=== PATIENT | male | born 1965 | race Caucasian/White ===

== ENCOUNTER 2020-11-02 23:43 | Inpatient (IN) | payer MEDICAID ==
[~2020-11-02] VITALS: Ht 185.4 cm; Wt 135.0 kg
[2020-11-03] VITALS (20 sets, daily range): BP systolic 79–124; BP diastolic 21–84
[2020-11-03] MEDS: FENTANYL-0.9 % NACL/PF 100 ML IV PRN ×3 (00:03→13:30)
[2020-11-03] MEDS: midazolam 100mg in NS 100ml 100 ML IV PRN ×2 (00:04→11:30)
--- NOTE | 2020-11-03 00:07 | NUR ---
Pt came from [facility] already intubated at 27cm at the lip and OG tube placed as well as smalls wit coude in place. Pt arrived on NS only, order from Dr. Quezada put in order for Versed and Fentanyl stat, 18g iv to right external jugular placed. RT at bedside, pt attached to vent with 100% fio2. Refer to [facility] paperwork for medications prior to transfer as well as labs prior to transfer
[2020-11-03 00:22] LABS: ABG BASE EXCESS -1.4 mmol/L (-2.0-2.0); ABG HCO3 27.2 mmol/L (22.0-26.0); ABG OXYGEN SATURATION 96.5 % (94-97); ABG PO2 (T) 88.8 mmHg (75.0-100.0); ALLEN'S TEST POSITIVE; FCOHb 1.6 % (0.0-3.9); FMetHb 0.1 % (0.0-1.5); FO2Hb 94.9 % (94-97); PATIENT TEMPERATURE 35.7; PEEP 5 cm H2O; RESPIRATORY RATE 18 b/min; TIDAL VOLUME 500 mL; TOTAL HEMOGLOBIN 15.8 G/dl (14.0-18.0)
[2020-11-03] MEDS: K, MAG and/or Phos replacement - Verify level? MC SCH ×2 (01:50→07:17)
[2020-11-03] MEDS ORDERED: ipratropium/albuterol 3ml nebule NEB PRN (01:50)
[2020-11-03] MEDS ORDERED: insulin Lispro (HumaLOG) vial - multi-dose SQ SCH (01:50)
[2020-11-03] MEDS ORDERED: ipratropium/albuterol 3ml nebule IH PRN (01:50)
[2020-11-03] MEDS ORDERED: MESSAGE TO PHARMACY PO ONE (01:50)
[2020-11-03] MEDS ORDERED: ondansetron/PF 4mg/2ml inj IV PRN (01:50)
[2020-11-03] MEDS ORDERED: dextrose ORAL solution 15 GM/59 ML bottle PO PRN ×2 (01:50)
[2020-11-03] MEDS ORDERED: magnesium 4gm in 100ml NS 100 ML IV PRN (01:50)
[2020-11-03] MEDS ORDERED: potassium Cl 20 mEq SR tablet PO PRN ×2 (01:50)
[2020-11-03] MEDS ORDERED: magnesium Cl slow-release 64mg tablet PO PRN (01:50)
[2020-11-03] MEDS ORDERED: glucagon, human recombinant 1mg kit SUBCUT PRN (01:50)
[2020-11-03] MEDS ORDERED: magnesium 2GM in 50ml NS 50 ML IV PRN (01:50)
[2020-11-03] MEDS ORDERED: acetaminophen 325mg tablet PO PRN ×2 (01:50)
[2020-11-03] MEDS ORDERED: IPRA3AMP31 IH (01:59)
[2020-11-03] MEDS ORDERED: NICO-687 TOP (01:59)
[2020-11-03] MEDS ORDERED: AMLO2.5T2 PO (01:59)
[2020-11-03] MEDS ORDERED: SYN0.088T PO (01:59)
[2020-11-03] MEDS ORDERED: APIX5TAB3 PO (01:59)
[2020-11-03] MEDS ORDERED: INSU100C10 SQ (01:59)
[2020-11-03] MEDS ORDERED: NITR1PAT68 TD (01:59)
[2020-11-03 02:23] LABS: BASOPHILS % (AUTO) 0.2 % (0-1); EOSINOPHILS % (AUTO) 0 % (0-6); HEMATOCRIT 43.8 % (42.0-52.0); HEMOGLOBIN 14.1 g/dl (14.0-17.9); LYMPHOCYTES # (AUTO) 0.3 X10'3 (1.1-4.8); LYMPHOCYTES % (AUTO) 1.6 % (21-51); MEAN CORPUSCULAR HGB CONC 32.3 g/dL (33.0-36.5); MEAN PLATELET VOLUME 7.9 FL (7.4-10.4); MONOCYTES # (AUTO) 1.7 X10'3 (0-0.9); MONOCYTES % (AUTO) 8.9 % (2-12); NEUTROPHILS # (AUTO) 16.8 X10'3 (1.8-7.7); NEUTROPHILS % (AUTO) 89.3 % (42-75); PLATELET COUNT 320 X10'3 (140-440); RED BLOOD COUNT 4.71 X10'6 (4.70-6.10); RED CELL DISTRIBUTION WIDTH 14.2 % (11.5-14.5); WHITE BLOOD COUNT 18.8 X10'3 (4.5-11.0)
[2020-11-03 02:33] LABS: ALANINE AMINOTRANSFERASE 30 U/L (12-78); ALBUMIN 2.3 G/DL (3.4-5.0); ALBUMIN/GLOBULIN RATIO 0.5 (1.1-1.5); ALKALINE PHOSPHATASE 132 IU/L (46-116); ANION GAP 7 (8-16); ASPARTATE AMINO TRANSFERASE 30 U/L (10-37); BILIRUBIN,TOTAL 0.8 MG/DL (0.1-1.0); CHLORIDE 99 MMOL/L (99-107); SODIUM 135 MMOL/L (135-145); TOTAL CARBON DIOXIDE 28.8 MMOL/L (24-32)
[2020-11-03 02:42] LABS: BLOOD UREA NITROGEN 28 MG/DL (7-18); BUN/CREATININE RATIO 21.9 (5.4-32.0); CALCIUM 8.9 MG/DL (8.5-10.1); CREATININE 1.28 MG/DL (0.60-1.10); GLUCOSE 115 MG/DL (70-104); eGFR 58 ML/MIN
[2020-11-03 02:44] LABS: POTASSIUM 6.1 MMOL/L (3.5-5.1)
--- NOTE | 2020-11-03 02:52 | NUR ---
K 6.1, PRIMARY RN, ERICA MONTEROIED.
[2020-11-03] MEDS ORDERED: vancomycin/NS 1 GM ADD-VANTAGE 250 ML IV SCH (03:00)
--- NOTE | 2020-11-03 03:04 | NUR ---
Person to contact - Sven Alaniz [phone]
[2020-11-03] MEDS ORDERED: SODIUM ZIRCONIUM CYCLOSILICATE 10 GM POWD.PACK NG STA (03:12)
[2020-11-03 03:13] LABS: HEMOGLOBIN A1C 10.5 % (4.5-6.2)
[2020-11-03] MEDS ORDERED: sodium polystyrene sulfonate 15gm/60ml oral suspension PO ONE ×2 (03:25→03:40)
[2020-11-03 03:43] LABS: AMYLASE 28 U/L (25-115); CREATINE KINASE 113 U/L (39-308); LIPASE 65 U/L (73-393); VANCOMYCIN,TROUGH 8.9 UG/ML (6.0-14.0)
[2020-11-03] MEDS ORDERED: dextrose 50%-water 50ml dispensing syringe IV ONE (04:30)
[2020-11-03] MEDS ORDERED: sodium bicarbonate (8.4%) 1 mEq/ml syringe IV ONE (04:30)
[2020-11-03] MEDS ORDERED: albuterol 2.5 MG/3 ML nebule NEB ONE (04:30)
[2020-11-03 04:45] LABS: ABG BASE EXCESS -0.3 mmol/L (-2.0-2.0); ABG HCO3 24.8 mmol/L (22.0-26.0); ABG OXYGEN SATURATION 99.4 % (94-97); ABG PCO2 (T) 40.9 mmHg (35.0-48.0); ABG PO2 (T) 190.3 mmHg (75.0-100.0); ALLEN'S TEST POSITIVE; FCOHb 0.6 % (0.0-3.9); FMetHb 0.3 % (0.0-1.5); FO2Hb 98.5 % (94-97); PATIENT TEMPERATURE 36.2; PEEP 8 cm H2O; RESPIRATORY RATE 24 b/min; TIDAL VOLUME 500 mL; TOTAL HEMOGLOBIN 15.5 G/dl (14.0-18.0)
--- NOTE | 2020-11-03 04:48 | NUR ---
Patient arrived to unit at approximately 0340 with ED RN. Patient currently on Fentanyl at 45 mcg/hr and Versed at 5 mg/hr. Patient has an 18g to his right IJ and an 18g to his right AC. Both bilateral lower extremities are wrapped in compression sol wraps with kerlex and xerofoam for circumferential wounds, compartments are soft. Wounds are draining and cultures sent for each extremity. Patient appears to have a fungal infection to the left anterior tib/fib area. Some areas of the wound appear to be necrotic. Patient also has excoriation noted to the scrotum and left medial groin area. Patient has edema to bilateral lower extremities and reddness extending on the right leg to mid thigh and left leg just below the knee. Patient has redness noted to bilateral flank areas. Patient bilateral hands are cyanotic, pulses weak, capillary refill prolonged. Patient has wounds on right hand x 3 that appear to be old and scabbed. Wounds appear to be puncture wounds. Pictures taken of each wound and placed in the chart. patient does not open his eyes, no gag, + cough. patient minimally moves bilateral upper arms and when the arms are moved it appears to be gross motor. Patient moves lower extremities but not to command. Patient has weak pulses, edema pitting and noted in bilateral lower extremities. patient has an OG to low intermittent suction, a smalls placed at outside facility (u/a and culture sent upon arrival), and ET tube (7.5, 26 at teeth). Patient has an 18g in right IJ and an 18g in right AC. Patient fentanyl increased to 150 mcg/hr during wound care. Blood culture sent, u/a and u/c sent. Vanco trough and lactic acid sent. Dr. Avalos notified and showed wounds as well as patient assessment. Orders placed.
[2020-11-03 05:00] LABS: CLARITY,URINE CLEAR (Clear); COLOR,URINE YELLOW (Yellow); GLUCOSE, URINE NEGATIVE (Neg); KETONES,URINE NEGATIVE (Neg); LEUKOCYTE ESTERASE ,URINE TRACE (Neg); NITRITES, URINE NEGATIVE (Neg); OCCULT BLOOD,URINE TRACE-INTACT (Neg); PROTEIN,URINE NEGATIVE (Neg)
[2020-11-03 05:02] LABS: UA COLLECTION TYPE NON-SPECIFIED
[2020-11-03 05:06] LABS: BACTERIA,URINE 2+ /HPF (Neg); HYALINE CASTS 0-3 /LPF (NEGATIVE); RBC,URINE 0-2 /HPF (0-2); SQUAMOUS EPITHELIAL CELL,UR MODERATE /LPF (FEW)
[2020-11-03] MEDS ORDERED: insulin Lispro (HumaLOG) vial - multi-dose SQ ONE (06:10)
--- NOTE | 2020-11-03 06:50 | NUR ---
Patient in room ICU 2045. I have received report from Lesly MATA and had the opportunity to ask questions and assume patient care.
[2020-11-03] MEDS: enoxaparin 40mg/0.4ml syringe SUBCUT SCH (07:20)
[2020-11-03] MEDS: pantoprazole 40 MG vial IV SCH (07:20)
[2020-11-03] MEDS: piperacillin/tazo 3.375gm/50ml 50 ML IV SCH ×2 (07:35→15:18)
[2020-11-03] MEDS ORDERED: levoTHYROXINE sod inj. 100mcg/5 ml vial IV SCH (08:00)
[2020-11-03] MEDS ORDERED: docusate sod 100mg capsule PO SCH (08:00)
[2020-11-03] MEDS ORDERED: VANCOmycin 1250MG/NS 250ml Bag 250 ML IV SCH (09:00)
--- NOTE | 2020-11-03 10:09 | NUR ---
PICC LINE INFORMATION: REF: [id number] LOT: [id number] EXP: 09/17/2021 Addendum: 11/03/20 at 1013 by Keyanna Jackson RN ORIGINALLY UNABLE TO GAIN CONSENT FROM FAMILY, SONAL JONES CALLED BACK AND APPROVED PICC LINE PLACEMENT
[2020-11-03 10:43] LABS: POTASSIUM 4.5 MMOL/L (3.5-5.1)
[2020-11-03] MEDS ORDERED: multi-vitamin w/minerals & ferrous gluconate 9 MG/15 ML oral LIQUID NG SCH (10:57)
[2020-11-03] MEDS ORDERED: acetaminophen 325mg/10.15ml oral unit dose solution NG PRN ×2 (10:59)
[2020-11-03] MEDS ORDERED: dextrose ORAL solution 15 GM/59 ML bottle NG PRN ×2 (11:00)
[2020-11-03] MEDS ORDERED: potassium Cl 20 mEq SR tablet NG PRN ×2 (11:01)
[2020-11-03 11:07] LABS: ALBUMIN 1.9 G/DL (3.4-5.0); ANION GAP 6 (8-16); BLOOD UREA NITROGEN 27 MG/DL (7-18); BUN/CREATININE RATIO 25.2 (5.4-32.0); CALCIUM 8.9 MG/DL (8.5-10.1); CHLORIDE 102 MMOL/L (99-107); CREATININE 1.07 MG/DL (0.60-1.10); GLUCOSE 71 MG/DL (70-104); SODIUM 139 MMOL/L (135-145); TOTAL CARBON DIOXIDE 31.3 MMOL/L (24-32); eGFR 72 ML/MIN
[2020-11-03] MEDS ORDERED: normal saline 1000ml 1,000 ML IV SCH (11:25)
--- NOTE | 2020-11-03 11:27 | NUR ---
ADRIANNA/Pablo Consults: Pt intubated admit DX acute hypoxemic respiratory failure, sepsis, CHF, chronic LLE swelling w/ LE cellulitis, heavy etoh abuse, and meth abuse hx. Hx T2DM A1C 10.5 as well; would benefit from DM ed once appropriate this admit. Pablo 12 w/ extensive BLE wounds and scrotal excoriation noted in pictures in chart. Pending WOC note at this time. MAP 67 this AM. TF recs below in case prolonged intubation. Receiving routine colace for bowel care pending BM this admit. Will continue to monitor. Rec: 1. IF TF; Vital High Protein at 95ml/hr 2. IF TF; water flush 100ml Q4 3. IF TF; PALB Q /; daily wts 4. routine bowel care Addendum: 11/03/20 at [address] Amended: Links added.
[2020-11-03] MEDS ORDERED: dexmedetomidine/D5W 100mL 100 ML IV ONE (12:05)
[2020-11-03] MEDS: thiamine 100mg tablet NG SCH (12:09)
[2020-11-03] MEDS: VANCOmycin 1250MG/NS 250ml Bag 250 ML IV SCH (12:09)
[2020-11-03] MEDS: folic acid 1mg tablet NG SCH (12:09)
[2020-11-03] MEDS ORDERED: ipratropium/albuterol 3ml nebule IH SCH (13:00)
[2020-11-03 14:45] LABS: ALBUMIN 1.6 G/DL (3.4-5.0); ANION GAP 5 (8-16); BLOOD UREA NITROGEN 24 MG/DL (7-18); BUN/CREATININE RATIO 22.4 (5.4-32.0); CALCIUM 7.8 MG/DL (8.5-10.1); CHLORIDE 101 MMOL/L (99-107); CREATININE 1.07 MG/DL (0.60-1.10); GLUCOSE 155 MG/DL (70-104); POTASSIUM 3.7 MMOL/L (3.5-5.1); SODIUM 135 MMOL/L (135-145); TOTAL CARBON DIOXIDE 28.6 MMOL/L (24-32); eGFR 72 ML/MIN
[2020-11-03 15:04] LABS: BASOPHILS % (AUTO) 0.4 % (0-1); EOSINOPHILS # (AUTO) 0.1 X10'3 (0-0.9); EOSINOPHILS % (AUTO) 0.7 % (0-6); HEMATOCRIT 39.3 % (42.0-52.0); HEMOGLOBIN 12.6 g/dl (14.0-17.9); LYMPHOCYTES # (AUTO) 0.7 X10'3 (1.1-4.8); LYMPHOCYTES % (AUTO) 7.9 % (21-51); MEAN CORPUSCULAR HEMOGLOBIN 29.6 PG (27.0-31.0); MEAN CORPUSCULAR VOLUME 92.4 FL (78-98); MONOCYTES # (AUTO) 0.8 X10'3 (0-0.9); MONOCYTES % (AUTO) 9.2 % (2-12); NEUTROPHILS # (AUTO) 7.3 X10'3 (1.8-7.7); NEUTROPHILS % (AUTO) 81.8 % (42-75); PLATELET COUNT 260 X10'3 (140-440); RED BLOOD COUNT 4.25 X10'6 (4.70-6.10); RED CELL DISTRIBUTION WIDTH 14.4 % (11.5-14.5); WHITE BLOOD COUNT 8.9 X10'3 (4.5-11.0)
[2020-11-03 15:23] LABS: TROPONIN I < 0.04 NG/ML (0.0-0.05)
[2020-11-03] MEDS: ipratropium/albuterol 3ml nebule IH SCH ×2 (15:44→19:04)
--- NOTE | 2020-11-03 16:42 | NUR ---
1415 Pt's BP dropped to 70s systolic. Dr. Dawn called and stated to hold versed and fentanyl, trop lab, and 12 lead EKG. Informed MD of EKG results of A-flutter R BBB, trop neg. 1640 called again regarding pt's BP sustaining 80s systolic. MD ordered to hold precedex and give 500 bolus. stated she would be in to see the patient.
[2020-11-03] MEDS ORDERED: diltiazem-D5W 125mg/125ml 100 ML IV SCH (17:45)
--- NOTE | 2020-11-03 17:45 | NUR ---
Dr. Dawn aware of pt is A-flutter, HR increased to 110s, to 120s. MD ordered Cardizem drip for pt. MD placed called to online marketing strategist underliner Dr. Shukla for consult.
--- NOTE | 2020-11-03 18:21 | NUR ---
Problems reprioritized. Patient report given, questions answered & plan of care reviewed with Mac RN.
[2020-11-03 18:30] LABS: MAGNESIUM 1.7 MG/DL (1.5-2.4); PHOSPHORUS 3.6 MG/DL (2.3-4.5)
[2020-11-03] MEDS: diltiazem-NS 100mg/100ml 100 ML IV SCH (19:22)
[2020-11-03] MEDS: docusate sodium 100mg/10ml UD cup NG SCH (19:23)
[2020-11-03] MEDS: lactobacillus rhamnosus 10,000 MMU CELLS/CAPSULE NG SCH (19:23)
[2020-11-03] MEDS: dextrose 50%-water 50ml dispensing syringe IV PRN (19:59)
[2020-11-03] MEDS: insulin glargine (Lantus) pen - multi-dose SQ SCH (20:08)
[2020-11-03] MEDS: sennosides/docusate sodium tablet NG SCH (20:42)
[2020-11-03] MEDS ORDERED: sodium chloride inj. 154 MEQ in Dextrose 10%-water IV solution 961.5 ML IV ONE (21:50)
[2020-11-03] MEDS: Dextrose 10%-water IV solution 1,000 ML IV SCH (22:21)
[2020-11-04] VITALS (24 sets, daily range): BP systolic 93–111; BP diastolic 57–73
[2020-11-04] MEDS: VANCOmycin 1250MG/NS 250ml Bag 250 ML IV SCH ×3 (00:27→23:37)
[2020-11-04] MEDS: piperacillin/tazo 3.375gm/50ml 50 ML IV SCH ×4 (00:27→23:38)
--- NOTE | 2020-11-04 01:00 | NUR ---
RN Note -changed dressings on bilateral lower extremities.
[2020-11-04 02:49] LABS: BASOPHILS % (AUTO) 0.3 % (0-1); EOSINOPHILS # (AUTO) 0.1 X10'3 (0-0.9); EOSINOPHILS % (AUTO) 0.5 % (0-6); HEMATOCRIT 44.7 % (42.0-52.0); HEMOGLOBIN 14.3 g/dl (14.0-17.9); LYMPHOCYTES # (AUTO) 0.5 X10'3 (1.1-4.8); LYMPHOCYTES % (AUTO) 4.6 % (21-51); MEAN CORPUSCULAR HEMOGLOBIN 29.7 PG (27.0-31.0); MEAN CORPUSCULAR HGB CONC 32.1 g/dL (33.0-36.5); MEAN CORPUSCULAR VOLUME 92.5 FL (78-98); MEAN PLATELET VOLUME 7.8 FL (7.4-10.4); MONOCYTES % (AUTO) 9.6 % (2-12); NEUTROPHILS # (AUTO) 8.7 X10'3 (1.8-7.7); PLATELET COUNT 296 X10'3 (140-440); RED BLOOD COUNT 4.83 X10'6 (4.70-6.10); RED CELL DISTRIBUTION WIDTH 14.3 % (11.5-14.5); WHITE BLOOD COUNT 10.2 X10'3 (4.5-11.0)
[2020-11-04 02:54] LABS: PARTIAL THROMBOPLASTIN TIME 33 SECONDS (22-32)
[2020-11-04 02:56] LABS: ALANINE AMINOTRANSFERASE 19 U/L (12-78); ALBUMIN 1.7 G/DL (3.4-5.0); ALBUMIN/GLOBULIN RATIO 0.4 (1.1-1.5); ALKALINE PHOSPHATASE 102 IU/L (46-116); ANION GAP 7 (8-16); ASPARTATE AMINO TRANSFERASE 18 U/L (10-37); BILIRUBIN,TOTAL 1.1 MG/DL (0.1-1.0); BLOOD UREA NITROGEN 25 MG/DL (7-18); BUN/CREATININE RATIO 23.1 (5.4-32.0); CALCIUM 8.5 MG/DL (8.5-10.1); CHLORIDE 103 MMOL/L (99-107); CREATININE 1.08 MG/DL (0.60-1.10); GLUCOSE 99 MG/DL (70-104); MAGNESIUM 1.9 MG/DL (1.5-2.4); PHOSPHORUS 3.8 MG/DL (2.3-4.5); POTASSIUM 4.3 MMOL/L (3.5-5.1); SODIUM 139 MMOL/L (135-145); TOTAL CARBON DIOXIDE 29.5 MMOL/L (24-32); TOTAL PROTEIN 5.8 G/DL (6.4-8.2); eGFR 71 ML/MIN
[2020-11-04 03:41] LABS: ABG BASE EXCESS 3.8 mmol/L (-2.0-2.0); ABG HCO3 27.3 mmol/L (22.0-26.0); ABG OXYGEN SATURATION 94.3 % (94-97); ABG PO2 (T) 66.4 mmHg (75.0-100.0); ALLEN'S TEST POSITIVE; FMetHb 0.1 % (0.0-1.5); FO2Hb 93.3 % (94-97); PATIENT TEMPERATURE 36.7; PEEP 8 cm H2O; RESPIRATORY RATE 24 b/min; TIDAL VOLUME 500 mL; TOTAL HEMOGLOBIN 15.5 G/dl (14.0-18.0)
[2020-11-04] MEDS: ipratropium/albuterol 3ml nebule IH SCH ×3 (06:54→15:03)
[2020-11-04] MEDS: enoxaparin 40mg/0.4ml syringe SUBCUT SCH (07:16)
[2020-11-04] MEDS: thiamine 100mg tablet NG SCH (07:17)
[2020-11-04] MEDS: pantoprazole 40 MG vial IV SCH (07:17)
[2020-11-04] MEDS: lactobacillus rhamnosus 10,000 MMU CELLS/CAPSULE NG SCH ×2 (07:17→19:42)
[2020-11-04] MEDS: folic acid 1mg tablet NG SCH (07:18)
[2020-11-04] MEDS: MULTIVIT-MIN/FERROUS GLUCONATE 9 MG/15 ML LIQUID NG SCH (07:18)
[2020-11-04] MEDS: levoTHYROXINE 88mcg tablet NG SCH (07:18)
[2020-11-04] MEDS: docusate sodium 100mg/10ml UD cup NG SCH ×2 (07:18→19:41)
[2020-11-04] MEDS: nicotine 21mg patch - 24 hr TD SCH (07:19)
[2020-11-04] MEDS ORDERED: nitroGLYCERIN 0.4mg/hour patch TD SCH (08:00)
[2020-11-04] MEDS ORDERED: levoTHYROXINE 88mcg tablet PO SCH (08:00)
[2020-11-04] MEDS: K, MAG and/or Phos replacement - Verify level? MC SCH (08:39)
--- NOTE | 2020-11-04 11:14 | NUR ---
TF Consult: Pt to start OGTF today per weapons designer to start at 20ml/hr; EN recs below. Per WOC note no open wounds at this time w/ cellulitis present. No BM yet though recent admit receiving routine colace and senna. Will monitor for TF tolerance and additional protein needs on vent. Rec: 1. OGTF per MD using Vital High Protein at 95ml/hr goal; to provide 2280ml volume, 2280kcals, 1915ml free water, and 200g protein. 2. water flush 100ml Q4 3. PALB Q /; daily wts 4. routine bowel care Addendum: 11/04/20 at [address] Amended: Links added.
[2020-11-04] MEDS: DOBUTamine-DoBUTrex 500mg/D5W 250 ML IV SCH (11:16)
[2020-11-04] MEDS: diltiazem-NS 100mg/100ml 100 ML IV SCH ×2 (17:15→23:36)
--- NOTE | 2020-11-04 18:14 | NUR ---
Problems reprioritized. Patient report given, questions answered & plan of care reviewed with Kar RN.
[2020-11-04] MEDS: Dextrose 10%-water IV solution 1,000 ML IV SCH (18:15)
[2020-11-04] MEDS: sennosides/docusate sodium tablet NG SCH (19:41)
[2020-11-04] MEDS: apixaban 5mg tablet NG SCH (19:42)
[2020-11-04] MEDS: insulin glargine (Lantus) pen - multi-dose SQ SCH (20:09)
[2020-11-04] MEDS: insulin regular, human U-100 3ml vial - multi-dose SQ SCH (21:36)
[2020-11-04] MEDS ORDERED: VANCOMYCIN LEVEL IV ONE (23:30)
[2020-11-04 23:33] LABS: HIV ANTIBODY 1&2 RAPID NON-REACTIVE (Neg)
[2020-11-05] VITALS (24 sets, daily range): BP systolic 92–106; BP diastolic 47–82
[2020-11-05] MEDS: insulin regular, human U-100 3ml vial - multi-dose SQ SCH ×4 (03:31→20:02)
[2020-11-05 03:48] LABS: BASOPHILS % (AUTO) 0.5 % (0-1); EOSINOPHILS # (AUTO) 0.1 X10'3 (0-0.9); EOSINOPHILS % (AUTO) 0.6 % (0-6); HEMATOCRIT 42.6 % (42.0-52.0); HEMOGLOBIN 13.8 g/dl (14.0-17.9); LYMPHOCYTES # (AUTO) 0.5 X10'3 (1.1-4.8); LYMPHOCYTES % (AUTO) 5.1 % (21-51); MEAN CORPUSCULAR HEMOGLOBIN 29.9 PG (27.0-31.0); MEAN CORPUSCULAR HGB CONC 32.3 g/dL (33.0-36.5); MEAN CORPUSCULAR VOLUME 92.5 FL (78-98); MEAN PLATELET VOLUME 7.6 FL (7.4-10.4); MONOCYTES # (AUTO) 0.9 X10'3 (0-0.9); MONOCYTES % (AUTO) 9.7 % (2-12); NEUTROPHILS # (AUTO) 7.7 X10'3 (1.8-7.7); NEUTROPHILS % (AUTO) 84.1 % (42-75); PLATELET COUNT 287 X10'3 (140-440); RED BLOOD COUNT 4.61 X10'6 (4.70-6.10); RED CELL DISTRIBUTION WIDTH 14.6 % (11.5-14.5); WHITE BLOOD COUNT 9.1 X10'3 (4.5-11.0)
[2020-11-05 03:55] LABS: ABG HCO3 25.4 mmol/L (22.0-26.0); ABG OXYGEN SATURATION 90.5 % (94-97); ABG PCO2 (T) 38.4 mmHg (35.0-48.0); ABG PO2 (T) 56.8 mmHg (75.0-100.0); ALLEN'S TEST POSITIVE; FCOHb 0.6 % (0.0-3.9); FMetHb 0.1 % (0.0-1.5); FO2Hb 89.9 % (94-97); PEEP 8 cm H2O; TOTAL HEMOGLOBIN 14.9 G/dl (14.0-18.0)
[2020-11-05 03:58] LABS: PARTIAL THROMBOPLASTIN TIME 34 SECONDS (22-32)
[2020-11-05 04:00] LABS: ALANINE AMINOTRANSFERASE 16 U/L (12-78); ALBUMIN 1.6 G/DL (3.4-5.0); ALBUMIN/GLOBULIN RATIO 0.4 (1.1-1.5); ALKALINE PHOSPHATASE 97 IU/L (46-116); ANION GAP 5 (8-16); ASPARTATE AMINO TRANSFERASE 9 U/L (10-37); BILIRUBIN,TOTAL 0.9 MG/DL (0.1-1.0); BLOOD UREA NITROGEN 25 MG/DL (7-18); BUN/CREATININE RATIO 21.9 (5.4-32.0); CALCIUM 8.5 MG/DL (8.5-10.1); CHLORIDE 100 MMOL/L (99-107); CREATININE 1.14 MG/DL (0.60-1.10); GLUCOSE 204 MG/DL (70-104); MAGNESIUM 1.9 MG/DL (1.5-2.4); PHOSPHORUS 3.8 MG/DL (2.3-4.5); POTASSIUM 4.1 MMOL/L (3.5-5.1); PREALBUMIN 7.2 MG/DL (19-36); SODIUM 136 MMOL/L (135-145); TOTAL CARBON DIOXIDE 30.6 MMOL/L (24-32); TOTAL PROTEIN 5.9 G/DL (6.4-8.2); eGFR 67 ML/MIN
[2020-11-05] MEDS: diltiazem-NS 100mg/100ml 100 ML IV SCH ×4 (04:36→19:09)
[2020-11-05] MEDS: DOBUTamine-DoBUTrex 500mg/D5W 250 ML IV SCH ×2 (05:10→20:18)
[2020-11-05] MEDS ORDERED: furosemide 40mg/4ml inj IV ONE (05:40)
[2020-11-05] MEDS: ipratropium/albuterol 3ml nebule IH SCH ×4 (07:18→19:35)
[2020-11-05] MEDS: thiamine 100mg tablet NG SCH (07:28)
[2020-11-05] MEDS: lactobacillus rhamnosus 10,000 MMU CELLS/CAPSULE NG SCH ×2 (07:28→19:56)
[2020-11-05] MEDS: levoTHYROXINE 88mcg tablet NG SCH (07:28)
[2020-11-05] MEDS: docusate sodium 100mg/10ml UD cup NG SCH ×2 (07:28→19:54)
[2020-11-05] MEDS: MULTIVIT-MIN/FERROUS GLUCONATE 9 MG/15 ML LIQUID NG SCH (07:28)
[2020-11-05] MEDS: lansoprazole 15mg solutab NG SCH (07:29)
[2020-11-05] MEDS: apixaban 5mg tablet NG SCH ×2 (07:29→19:57)
[2020-11-05] MEDS: folic acid 1mg tablet NG SCH (07:29)
[2020-11-05] MEDS: piperacillin/tazo 3.375gm/50ml 50 ML IV SCH ×2 (07:30→16:21)
[2020-11-05] MEDS: nicotine 21mg patch - 24 hr TD SCH (07:30)
--- NOTE | 2020-11-05 07:59 | NUR ---
I have reviewed and agree with all medications administered and interventions performed by [facility] Student(Nitin Butler) Addendum: 11/05/20 at 0800 by Chandni [address] RT Amended: Links added.
[2020-11-05] MEDS: K, MAG and/or Phos replacement - Verify level? MC SCH (08:00)
[2020-11-05] MEDS: VANCOmycin 1250MG/NS 250ml Bag 250 ML IV SCH (11:46)
--- NOTE | 2020-11-05 12:22 | NUR ---
F/u: Pt Na 136 s/p one time lasix dosage this AM and free water to be held at this time per grade checker. Addendum: 11/05/20 at [address] Amended: Links added.
--- NOTE | 2020-11-05 13:00 | NUR ---
Dr. Dawn at bedside. Notified MD of patient's increased urine output. MD consulted Dr. Gallardo via telephone.
[2020-11-05] MEDS: Dextrose 10%-water IV solution 1,000 ML IV SCH (14:15)
--- NOTE | 2020-11-05 14:45 | NUR ---
Right leg dressing changed per wound care orders. patient tolerated well.
--- NOTE | 2020-11-05 17:05 | NUR ---
Left leg dressing changed per wound care orders. patient tolerated well.
[2020-11-05] MEDS: sennosides/docusate sodium tablet NG SCH (20:00)
[2020-11-05] MEDS: insulin glargine (Lantus) pen - multi-dose SQ SCH (20:03)
[2020-11-06] VITALS (24 sets, daily range): BP systolic 101–141; BP diastolic 63–103
[2020-11-06] MEDS: VANCOmycin 1250MG/NS 250ml Bag 250 ML IV SCH (00:35)
[2020-11-06] MEDS: piperacillin/tazo 3.375gm/50ml 50 ML IV SCH ×2 (00:49→07:20)
[2020-11-06] MEDS: diltiazem-NS 100mg/100ml 100 ML IV SCH (00:52)
[2020-11-06] MEDS: insulin regular, human U-100 3ml vial - multi-dose SQ SCH ×2 (02:20→07:28)
[2020-11-06 02:35] LABS: BASOPHILS # (AUTO) 0.1 X10'3 (0-0.2); BASOPHILS % (AUTO) 0.6 % (0-1); EOSINOPHILS # (AUTO) 0.1 X10'3 (0-0.9); EOSINOPHILS % (AUTO) 1.3 % (0-6); HEMATOCRIT 44.3 % (42.0-52.0); HEMOGLOBIN 14.2 g/dl (14.0-17.9); LYMPHOCYTES # (AUTO) 0.4 X10'3 (1.1-4.8); LYMPHOCYTES % (AUTO) 4.6 % (21-51); MEAN CORPUSCULAR HEMOGLOBIN 29.9 PG (27.0-31.0); MEAN CORPUSCULAR HGB CONC 32.1 g/dL (33.0-36.5); MEAN CORPUSCULAR VOLUME 93.1 FL (78-98); MEAN PLATELET VOLUME 7.6 FL (7.4-10.4); MONOCYTES % (AUTO) 10.1 % (2-12); NEUTROPHILS # (AUTO) 8.1 X10'3 (1.8-7.7); NEUTROPHILS % (AUTO) 83.4 % (42-75); PLATELET COUNT 301 X10'3 (140-440); RED BLOOD COUNT 4.76 X10'6 (4.70-6.10); RED CELL DISTRIBUTION WIDTH 14.6 % (11.5-14.5); WHITE BLOOD COUNT 9.6 X10'3 (4.5-11.0)
[2020-11-06 02:53] LABS: ALANINE AMINOTRANSFERASE 21 U/L (12-78); ALBUMIN 1.5 G/DL (3.4-5.0); ALBUMIN/GLOBULIN RATIO 0.3 (1.1-1.5); ALKALINE PHOSPHATASE 95 IU/L (46-116); ANION GAP 5 (8-16); ASPARTATE AMINO TRANSFERASE 9 U/L (10-37); BILIRUBIN,TOTAL 0.7 MG/DL (0.1-1.0); BLOOD UREA NITROGEN 29 MG/DL (7-18); BUN/CREATININE RATIO 27.1 (5.4-32.0); CALCIUM 8.8 MG/DL (8.5-10.1); CHLORIDE 103 MMOL/L (99-107); CREATININE 1.07 MG/DL (0.60-1.10); GLUCOSE 131 MG/DL (70-104); MAGNESIUM 2.1 MG/DL (1.5-2.4); POTASSIUM 3.9 MMOL/L (3.5-5.1); SODIUM 139 MMOL/L (135-145); TOTAL CARBON DIOXIDE 30.8 MMOL/L (24-32); TOTAL PROTEIN 6.3 G/DL (6.4-8.2); eGFR 72 ML/MIN
[2020-11-06 03:08] LABS: PARTIAL THROMBOPLASTIN TIME 33 SECONDS (22-32)
[2020-11-06 03:50] LABS: ABG BASE EXCESS -5.5 mmol/L (-2.0-2.0); ABG HCO3 16.7 mmol/L (22.0-26.0); ABG OXYGEN SATURATION 91.8 % (94-97); ABG PCO2 (T) 24.2 mmHg (35.0-48.0); ABG PO2 (T) 69.4 mmHg (75.0-100.0); ALLEN'S TEST POSITIVE; FCOHb 0.4 % (0.0-3.9); FMetHb 0.1 % (0.0-1.5); FO2Hb 91.3 % (94-97); PATIENT TEMPERATURE 36.5; TOTAL HEMOGLOBIN 14.1 G/dl (14.0-18.0)
[2020-11-06] MEDS: ipratropium/albuterol 3ml nebule IH SCH ×4 (06:57→19:36)
[2020-11-06] MEDS: MULTIVIT-MIN/FERROUS GLUCONATE 9 MG/15 ML LIQUID NG SCH (07:13)
[2020-11-06] MEDS: folic acid 1mg tablet NG SCH (07:13)
[2020-11-06] MEDS: levoTHYROXINE 88mcg tablet NG SCH (07:13)
[2020-11-06] MEDS: thiamine 100mg tablet NG SCH (07:13)
[2020-11-06] MEDS: lansoprazole 15mg solutab NG SCH (07:13)
[2020-11-06] MEDS: apixaban 5mg tablet NG SCH ×2 (07:13→20:30)
[2020-11-06] MEDS: docusate sodium 100mg/10ml UD cup NG SCH ×2 (07:13→20:36)
[2020-11-06] MEDS: lactobacillus rhamnosus 10,000 MMU CELLS/CAPSULE NG SCH ×2 (07:13→20:31)
[2020-11-06] MEDS: nicotine 21mg patch - 24 hr TD SCH (07:20)
[2020-11-06] MEDS: K, MAG and/or Phos replacement - Verify level? MC SCH (08:00)
[2020-11-06] MEDS: Dextrose 10%-water IV solution 1,000 ML IV SCH (10:15)
[2020-11-06] MEDS ORDERED: furosemide 40mg/4ml inj IV ONE ×2 (10:35→15:55)
--- NOTE | 2020-11-06 10:50 | NUR ---
patient's coudet exchanged per MD orders. Patient tolerated procedure well.
--- NOTE | 2020-11-06 11:21 | NUR ---
Reassessment: Pt remains intubated and tolerating TF at goal rate with GRV WNL. No documented BM, pt receiving routine Colace and Senna-s. No changes to nutrition intervention recommendations at this time. Will continue to follow closely. Rec: 1. OGTF per MD using Vital High Protein at 95ml/hr goal; to provide 2280 ml volume, 2280 kcals, 1915 ml water, and 200 g protein. 2. additional water flush per stone trimmer 3. PALB Q /; daily wts 4. routine bowel care 5. DM education following extubation once stable, A1c 10.5% Addendum: 11/06/20 at [address] Amended: Links added.
--- NOTE | 2020-11-06 11:25 | NUR ---
, RT and primary RN at bedside. Patient extubated to 4L.
--- NOTE | 2020-11-06 11:50 | NUR ---
RT notified that patient's saturation is 87/88% at 4L after suctioning and encouraging patient to cough. RT at bedside placing patient on salter at 6L; patient saturation is 91%.
[2020-11-06] MEDS: sulfamethoxazole/trimethoprim DS (800/160mg) tablet PO SCH ×2 (12:36→20:33)
[2020-11-06] MEDS ORDERED: amiodarone 150mg/dext, iso-os 100 ML IV ONE (13:50)
--- NOTE | 2020-11-06 14:00 | NUR ---
called RT to bedside patient's saturation 87%/88% and patient looked to be in more distress.
[2020-11-06] MEDS: amiodarone/D5 360MG/200ML BAG 200 ML IV SCH ×2 (14:09→20:19)
--- NOTE | 2020-11-06 14:30 | NUR ---
notified RT that patient's saturation was maintaining at 83% at max L on salter nasal canula.
[2020-11-06] MEDS: dextrose 50%-water 50ml dispensing syringe IV PRN ×2 (15:06→19:55)
--- NOTE | 2020-11-06 15:15 | NUR ---
pt blood sugar at 1500 was 28, 1 amp of D50 give current blood sugar 105.
[2020-11-06 15:27] LABS: ABG BASE EXCESS -1.4 mmol/L (-2.0-2.0); ABG HCO3 27.1 mmol/L (22.0-26.0); ABG OXYGEN SATURATION 87.4 % (94-97); ABG PCO2 (T) 60.3 mmHg (35.0-48.0); ABG PO2 (T) 56.6 mmHg (75.0-100.0); ALLEN'S TEST Yes; FCOHb 0.4 % (0.0-3.9); FLOW 10 L/min; FMetHb 0.1 % (0.0-1.5); TOTAL HEMOGLOBIN 16.5 G/dl (14.0-18.0)
--- NOTE | 2020-11-06 15:30 | NUR ---
MD updated on blood sugars and oxygen saturation; new orders received to restart D10 at 50mL/hr and BiPap. RT at bedside.
[2020-11-06 16:43] LABS: ABG HCO3 28.4 mmol/L (22.0-26.0); ABG OXYGEN SATURATION 92.7 % (94-97); ABG PCO2 (T) 50.9 mmHg (35.0-48.0); ABG PO2 (T) 70.3 mmHg (75.0-100.0); ALLEN'S TEST Yes; FCOHb 0.5 % (0.0-3.9); FMetHb 0.2 % (0.0-1.5); FO2Hb 92.1 % (94-97); RESPIRATORY RATE 20 b/min; TOTAL HEMOGLOBIN 15.4 G/dl (14.0-18.0)
--- NOTE | 2020-11-06 18:31 | NUR ---
Patient report given, questions answered & plan of care reviewed with Mika MATA.
--- NOTE | 2020-11-06 19:00 | NUR ---
Patient in room ICU 2045. I have received report from Jamison MATA and had the opportunity to ask questions and assume patient care.
[2020-11-06] MEDS: sennosides/docusate sodium tablet NG SCH (20:34)
[2020-11-06 20:40] LABS: HBSAG SCREEN Negative (Negative); HEP A AB, IGM Negative (Negative); HEPATITIS C ANTIBODY <0.1 s/co ratio (0.0-0.9)
[2020-11-06] MEDS: insulin glargine (Lantus) pen - multi-dose SQ SCH (21:00)
--- NOTE | 2020-11-06 21:00 | NUR ---
Pt mentation has improved. Was able to switch patient to high flow nasal cannula to asses mentation. Pt answered all questions appropriately and was able to take his oral medications. He was able to feed himself apple sauce and drink water without any difficulty.
[2020-11-06] MEDS: piperacillin/tazo 4.5gm/100ml 100 ML IV SCH (23:55)
[2020-11-07] VITALS (24 sets, daily range): BP systolic 112–157; BP diastolic 68–98
[2020-11-07 02:39] LABS: BASOPHILS % (AUTO) 0.3 % (0-1); EOSINOPHILS % (AUTO) 0.3 % (0-6); HEMATOCRIT 46.2 % (42.0-52.0); HEMOGLOBIN 14.6 g/dl (14.0-17.9); LYMPHOCYTES # (AUTO) 0.4 X10'3 (1.1-4.8); LYMPHOCYTES % (AUTO) 4.2 % (21-51); MEAN CORPUSCULAR HEMOGLOBIN 29.5 PG (27.0-31.0); MEAN CORPUSCULAR HGB CONC 31.5 g/dL (33.0-36.5); MEAN CORPUSCULAR VOLUME 93.7 FL (78-98); MEAN PLATELET VOLUME 7.6 FL (7.4-10.4); MONOCYTES # (AUTO) 0.8 X10'3 (0-0.9); MONOCYTES % (AUTO) 8.3 % (2-12); NEUTROPHILS # (AUTO) 8.2 X10'3 (1.8-7.7); NEUTROPHILS % (AUTO) 86.9 % (42-75); PLATELET COUNT 321 X10'3 (140-440); RED BLOOD COUNT 4.93 X10'6 (4.70-6.10); RED CELL DISTRIBUTION WIDTH 14.6 % (11.5-14.5); WHITE BLOOD COUNT 9.4 X10'3 (4.5-11.0)
[2020-11-07 02:47] LABS: PARTIAL THROMBOPLASTIN TIME 32 SECONDS (22-32)
[2020-11-07 02:49] LABS: ALANINE AMINOTRANSFERASE 19 U/L (12-78); ALBUMIN 1.7 G/DL (3.4-5.0); ALBUMIN/GLOBULIN RATIO 0.3 (1.1-1.5); ALKALINE PHOSPHATASE 108 IU/L (46-116); ANION GAP 8 (8-16); ASPARTATE AMINO TRANSFERASE 18 U/L (10-37); BILIRUBIN,TOTAL 0.8 MG/DL (0.1-1.0); BLOOD UREA NITROGEN 34 MG/DL (7-18); CALCIUM 8.9 MG/DL (8.5-10.1); CHLORIDE 98 MMOL/L (99-107); CREATININE 1.31 MG/DL (0.60-1.10); GLUCOSE 219 MG/DL (70-104); MAGNESIUM 1.9 MG/DL (1.5-2.4); POTASSIUM 4.1 MMOL/L (3.5-5.1); SODIUM 136 MMOL/L (135-145); TOTAL CARBON DIOXIDE 30.4 MMOL/L (24-32); TOTAL PROTEIN 6.7 G/DL (6.4-8.2); eGFR 57 ML/MIN
--- NOTE | 2020-11-07 05:15 | NUR ---
Dr. Fabian the Tele medicine aircraft sales representative rounded. She said she she wanted the BIPAP removed on the Patirnt only for oral medication and meals on high flow nasal cannula.
[2020-11-07] MEDS: Dextrose 10%-water IV solution 1,000 ML IV SCH (06:15)
[2020-11-07] MEDS: docusate sodium 100mg/10ml UD cup NG SCH ×2 (07:14→19:56)
[2020-11-07] MEDS: MULTIVIT-MIN/FERROUS GLUCONATE 9 MG/15 ML LIQUID NG SCH (07:14)
[2020-11-07] MEDS: lansoprazole 15mg solutab NG SCH (07:15)
[2020-11-07] MEDS: sulfamethoxazole/trimethoprim DS (800/160mg) tablet PO SCH ×2 (07:15→19:53)
[2020-11-07] MEDS: lactobacillus rhamnosus 10,000 MMU CELLS/CAPSULE NG SCH ×2 (07:15→19:52)
[2020-11-07] MEDS: ipratropium/albuterol 3ml nebule IH SCH ×4 (07:15→19:14)
[2020-11-07] MEDS: levoTHYROXINE 88mcg tablet NG SCH (07:15)
[2020-11-07] MEDS: apixaban 5mg tablet NG SCH ×2 (07:15→19:52)
[2020-11-07] MEDS: thiamine 100mg tablet NG SCH (07:15)
[2020-11-07] MEDS: folic acid 1mg tablet NG SCH (07:15)
[2020-11-07] MEDS: nicotine 21mg patch - 24 hr TD SCH (07:16)
[2020-11-07] MEDS: piperacillin/tazo 4.5gm/100ml 100 ML IV SCH ×2 (07:16→16:44)
[2020-11-07] MEDS: K, MAG and/or Phos replacement - Verify level? MC SCH (08:00)
[2020-11-07] MEDS: amiodarone/D5 360MG/200ML BAG 200 ML IV SCH (08:37)
[2020-11-07] MEDS ORDERED: furosemide 40mg/4ml inj IV ONE (10:35)
[2020-11-07] MEDS ORDERED: chlorhexidine gluc 0.4% **topical ** 120ml btl. TP ONE (11:55)
--- NOTE | 2020-11-07 12:00 | NUR ---
at bedside for dressing change. wounds cleansed and dressings changed. SILVIA bandages placed. New orders received for dressing changes. IV amio gtt discontinued
[2020-11-07] MEDS: HYDROmorphone 1 mg/ml syringe IV PRN (12:01)
[2020-11-07] MEDS ORDERED: bisacodyl 10mg suppository rectal RC STA (13:16)
[2020-11-07] MEDS: insulin Lispro (HumaLOG) vial - multi-dose SQ SCH ×2 (14:00→19:50)
[2020-11-07] MEDS: polyethylene glycol 3350 17gm powd pack PO SCH ×4 (14:31→19:51)
--- NOTE | 2020-11-07 18:20 | NUR ---
Patient report given, questions answered & plan of care reviewed with Mika MATA.
[2020-11-07] MEDS: insulin glargine (Lantus) pen - multi-dose SQ SCH (19:51)
[2020-11-07] MEDS: carVEDilol 12.5mg tablet PO SCH (19:52)
[2020-11-07] MEDS: sennosides/docusate sodium tablet NG SCH (19:56)
[2020-11-08] VITALS (23 sets, daily range): BP systolic 68–138; BP diastolic 40–89
[2020-11-08] MEDS: piperacillin/tazo 4.5gm/100ml 100 ML IV SCH ×3 (00:09→17:16)
[2020-11-08 03:30] LABS: BASOPHILS % (AUTO) 0.5 % (0-1); EOSINOPHILS # (AUTO) 0.1 X10'3 (0-0.9); EOSINOPHILS % (AUTO) 1.3 % (0-6); HEMATOCRIT 44.7 % (42.0-52.0); HEMOGLOBIN 14.3 g/dl (14.0-17.9); LYMPHOCYTES # (AUTO) 0.5 X10'3 (1.1-4.8); LYMPHOCYTES % (AUTO) 5.4 % (21-51); MEAN CORPUSCULAR HEMOGLOBIN 29.8 PG (27.0-31.0); MEAN CORPUSCULAR VOLUME 93.2 FL (78-98); MEAN PLATELET VOLUME 7.3 FL (7.4-10.4); MONOCYTES # (AUTO) 1.1 X10'3 (0-0.9); MONOCYTES % (AUTO) 13.2 % (2-12); NEUTROPHILS # (AUTO) 6.7 X10'3 (1.8-7.7); NEUTROPHILS % (AUTO) 79.6 % (42-75); PLATELET COUNT 307 X10'3 (140-440); RED BLOOD COUNT 4.79 X10'6 (4.70-6.10); RED CELL DISTRIBUTION WIDTH 14.5 % (11.5-14.5); WHITE BLOOD COUNT 8.4 X10'3 (4.5-11.0)
[2020-11-08 03:45] LABS: ALANINE AMINOTRANSFERASE 18 U/L (12-78); ALBUMIN 1.7 G/DL (3.4-5.0); ALBUMIN/GLOBULIN RATIO 0.4 (1.1-1.5); ALKALINE PHOSPHATASE 112 IU/L (46-116); ANION GAP 2 (8-16); ASPARTATE AMINO TRANSFERASE 18 U/L (10-37); BILIRUBIN,TOTAL 0.6 MG/DL (0.1-1.0); BLOOD UREA NITROGEN 35 MG/DL (7-18); BUN/CREATININE RATIO 26.5 (5.4-32.0); CALCIUM 8.7 MG/DL (8.5-10.1); CHLORIDE 99 MMOL/L (99-107); CREATININE 1.32 MG/DL (0.60-1.10); GLUCOSE 105 MG/DL (70-104); PHOSPHORUS 3.6 MG/DL (2.3-4.5); POTASSIUM 4.4 MMOL/L (3.5-5.1); SODIUM 134 MMOL/L (135-145); TOTAL CARBON DIOXIDE 33.2 MMOL/L (24-32); TOTAL PROTEIN 6.5 G/DL (6.4-8.2); eGFR 56 ML/MIN
[2020-11-08] MEDS ORDERED: metoclopramide 5 mg/ml inj IV PRN (04:55)
--- NOTE | 2020-11-08 06:30 | NUR ---
Patient in room CICU 2009. I have received report from ESPERANZA Brennan and had the opportunity to ask questions and assume patient care.
[2020-11-08] MEDS: ipratropium/albuterol 3ml nebule IH SCH ×4 (07:45→20:07)
[2020-11-08] MEDS: sulfamethoxazole/trimethoprim DS (800/160mg) tablet PO SCH ×2 (07:54→19:24)
[2020-11-08] MEDS: lisinopril 20mg tablet PO SCH (07:54)
[2020-11-08] MEDS: folic acid 1mg tablet NG SCH (07:55)
[2020-11-08] MEDS: lactobacillus rhamnosus 10,000 MMU CELLS/CAPSULE NG SCH ×2 (07:55→19:23)
[2020-11-08] MEDS: apixaban 5mg tablet NG SCH ×2 (07:55→19:24)
[2020-11-08] MEDS: thiamine 100mg tablet NG SCH (07:55)
[2020-11-08] MEDS: carVEDilol 12.5mg tablet PO SCH (07:56)
[2020-11-08] MEDS: levoTHYROXINE 88mcg tablet NG SCH (07:56)
[2020-11-08] MEDS: docusate sodium 100mg/10ml UD cup NG SCH ×2 (07:56→19:24)
[2020-11-08] MEDS: MULTIVIT-MIN/FERROUS GLUCONATE 9 MG/15 ML LIQUID NG SCH (07:56)
[2020-11-08] MEDS: K, MAG and/or Phos replacement - Verify level? MC SCH (08:00)
[2020-11-08] MEDS: nicotine 21mg patch - 24 hr TD SCH (09:52)
--- NOTE | 2020-11-08 10:19 | NUR ---
F/u 11/08: Pt extubated advanced to carb controlled/east to chew diet PO 75-100% avg initial meals per EMR. Prior CLERICAL ASSIGNER BSS recommends NPO 11/06 though pt mentation improving per EMR; will monitor for additional CLERICAL ASSIGNER recs tomorrow. IF cleared for PO per CLERICAL ASSIGNER and continued good intake would benefit from double proteins TIDWM given needs. No BM yet this admit 5 days receiving routine colace and senna. Continues to receive routine thiamin, folic, MVI for etoh hx. Pt would benefit from DM ed once appropriate prior to discharge; noted no DM hx in EMR but RN reports prior DM hx w/ A1C 10.5. Will monitor for CLERICAL ASSIGNER texture modification recs, additional protein needs, and further bowel care needs this admit. Rec: 1. continue easy to chew/CCHO diet; adjust per CLERICAL ASSIGNER f/u recs 2. monitor for additional protein needs following CLERICAL ASSIGNER BSS 3. routine bowel care 4. weekly wts 5. DM education once appropriate this admit, A1c 10.5% Addendum: 11/08/20 at [address] Amended: Links added.
[2020-11-08] MEDS: HYDROmorphone 1 mg/ml syringe IV PRN ×3 (12:02→19:51)
[2020-11-08] MEDS: NUT.TX.GLUC.INTOLER,LAC-FR,SOY (GLUCERNA) 237 ML PO SCH ×2 (13:00→18:54)
--- NOTE | 2020-11-08 13:30 | NUR ---
Called Dr. Dawn to report pt's hypotension, received order for 250 mL NS bolus. Pt did not respond to bolus so a second 250 mL NS bolus ordered along with CXR, troponin, 12 lead EKG and ABG.
--- NOTE | 2020-11-08 13:45 | NUR ---
Hillary left with Dr. Gallardo' forest fire officer requesting that he call CICU regarding pt's hypotension and bradycardia.
[2020-11-08] MEDS ORDERED: DOBUTamine-DoBUTrex 500mg/D5W 250 ML IV ONE (14:24)
[2020-11-08] MEDS ORDERED: NORepinephrine 8mg/ 250ml NS 250 ML IV PRN (14:25)
--- NOTE | 2020-11-08 14:30 | NUR ---
Dobutamine gtt started.
[2020-11-08] MEDS: DOBUTamine-DoBUTrex 500mg/D5W 250 ML IV SCH (14:33)
[2020-11-08 15:00] LABS: ABG BASE EXCESS 3.6 mmol/L (-2.0-2.0); ABG HCO3 30.7 mmol/L (22.0-26.0); ABG OXYGEN SATURATION 95.2 % (94-97); ABG PCO2 (T) 56.2 mmHg (35.0-48.0); ABG PO2 (T) 78.1 mmHg (75.0-100.0); ALLEN'S TEST POSITIVE; FCOHb 0.6 % (0.0-3.9); FMetHb 0.3 % (0.0-1.5); FO2Hb 94.3 % (94-97); PATIENT TEMPERATURE 36.8; RESPIRATORY RATE 16 b/min; TIDAL VOLUME 1538 mL; TOTAL HEMOGLOBIN 14.8 G/dl (14.0-18.0)
--- NOTE | 2020-11-08 15:18 | NUR ---
Dr. Ruiz wants Dobutamine gtt at 0.5mcg/kg/min and to be left at that.
--- NOTE | 2020-11-08 17:00 | NUR ---
Levophed gtt started at 0.01mcg/kg/min. Goal is to maintain MAP > 60, DBP > [address] Ruiz.
--- NOTE | 2020-11-08 18:25 | NUR ---
Problems reprioritized. Patient report given, questions answered & plan of care reviewed with ESPERANZA Simpson.
--- NOTE | 2020-11-08 18:30 | NUR ---
Patient in room CICU 2009. I have received report from Michael MATA and had the opportunity to ask questions and assume patient care.
[2020-11-08] MEDS: sennosides/docusate sodium tablet NG SCH (19:24)
[2020-11-08] MEDS: insulin glargine (Lantus) pen - multi-dose SQ SCH (21:16)
[2020-11-09] VITALS (23 sets, daily range): BP systolic 70–116; BP diastolic 43–78
[2020-11-09] MEDS: piperacillin/tazo 4.5gm/100ml 100 ML IV SCH ×3 (00:13→16:02)
--- NOTE | 2020-11-09 00:19 | NUR ---
Pt is sleeping with BiPap in place, sitting up. Pt wakes easily but map remains low. Titrating IV meds per protocol to maintain map of 65.
--- NOTE | 2020-11-09 00:36 | NUR ---
Problems reprioritized. Patient report given, questions answered & plan of care reviewed with Donald MATA.
[2020-11-09] MEDS: lisinopril 20mg tablet PO SCH (06:47)
[2020-11-09] MEDS: ipratropium/albuterol 3ml nebule IH SCH ×4 (06:56→20:11)
[2020-11-09] MEDS: lactobacillus rhamnosus 10,000 MMU CELLS/CAPSULE NG SCH (07:23)
[2020-11-09] MEDS: levoTHYROXINE 88mcg tablet NG SCH (07:23)
[2020-11-09] MEDS: docusate sodium 100mg/10ml UD cup NG SCH (07:24)
[2020-11-09] MEDS: MULTIVIT-MIN/FERROUS GLUCONATE 9 MG/15 ML LIQUID NG SCH (07:24)
[2020-11-09] MEDS: folic acid 1mg tablet NG SCH (07:24)
[2020-11-09] MEDS: apixaban 5mg tablet NG SCH (07:24)
[2020-11-09] MEDS: nicotine 21mg patch - 24 hr TD SCH (07:25)
[2020-11-09 07:28] LABS: BASOPHILS % (AUTO) 0.2 % (0-1); EOSINOPHILS # (AUTO) 0.1 X10'3 (0-0.9); EOSINOPHILS % (AUTO) 1.2 % (0-6); HEMATOCRIT 44.5 % (42.0-52.0); HEMOGLOBIN 14.4 g/dl (14.0-17.9); LYMPHOCYTES # (AUTO) 0.5 X10'3 (1.1-4.8); LYMPHOCYTES % (AUTO) 4.4 % (21-51); MEAN CORPUSCULAR HGB CONC 32.4 g/dL (33.0-36.5); MEAN CORPUSCULAR VOLUME 92.6 FL (78-98); MEAN PLATELET VOLUME 7.5 FL (7.4-10.4); MONOCYTES # (AUTO) 1.1 X10'3 (0-0.9); MONOCYTES % (AUTO) 10.7 % (2-12); NEUTROPHILS # (AUTO) 8.7 X10'3 (1.8-7.7); NEUTROPHILS % (AUTO) 83.5 % (42-75); PLATELET COUNT 315 X10'3 (140-440); RED BLOOD COUNT 4.81 X10'6 (4.70-6.10); RED CELL DISTRIBUTION WIDTH 14.3 % (11.5-14.5); WHITE BLOOD COUNT 10.5 X10'3 (4.5-11.0)
[2020-11-09] MEDS: sulfamethoxazole/trimethoprim DS (800/160mg) tablet PO SCH ×2 (07:28→19:15)
[2020-11-09] MEDS: thiamine 100mg tablet NG SCH (07:28)
[2020-11-09 07:48] LABS: ALANINE AMINOTRANSFERASE 22 U/L (12-78); ALBUMIN 1.6 G/DL (3.4-5.0); ALBUMIN/GLOBULIN RATIO 0.3 (1.1-1.5); ALKALINE PHOSPHATASE 131 IU/L (46-116); ANION GAP 4 (8-16); ASPARTATE AMINO TRANSFERASE 17 U/L (10-37); BILIRUBIN,TOTAL 0.5 MG/DL (0.1-1.0); BLOOD UREA NITROGEN 43 MG/DL (7-18); BUN/CREATININE RATIO 30.5 (5.4-32.0); CALCIUM 8.6 MG/DL (8.5-10.1); CHLORIDE 95 MMOL/L (99-107); CREATININE 1.41 MG/DL (0.60-1.10); GLUCOSE 179 MG/DL (70-104); MAGNESIUM 2.3 MG/DL (1.5-2.4); PHOSPHORUS 3.7 MG/DL (2.3-4.5); POTASSIUM 4.4 MMOL/L (3.5-5.1); SODIUM 130 MMOL/L (135-145); TOTAL CARBON DIOXIDE 31.2 MMOL/L (24-32); TOTAL PROTEIN 6.4 G/DL (6.4-8.2); eGFR 52 ML/MIN
[2020-11-09] MEDS: NUT.TX.GLUC.INTOLER,LAC-FR,SOY (GLUCERNA) 237 ML PO SCH ×3 (08:22→19:14)
[2020-11-09] MEDS: insulin Lispro (HumaLOG) vial - multi-dose SQ SCH ×3 (08:27→19:22)
[2020-11-09] MEDS: HYDROmorphone 1 mg/ml syringe IV PRN (09:28)
[2020-11-09] MEDS: silver sulfadiazine cream 400gm jar TP SCH (10:05)
[2020-11-09 10:46] LABS: PREALBUMIN 11.3 MG/DL (19-36)
[2020-11-09] MEDS ORDERED: acetaminophen 325mg/10.15ml oral unit dose solution PO PRN ×2 (11:28→11:29)
[2020-11-09] MEDS ORDERED: dextrose ORAL solution 15 GM/59 ML bottle PO PRN ×2 (11:31→11:32)
[2020-11-09] MEDS: pantoprazole 40mg Tablet.DR PO SCH (12:50)
[2020-11-09] MEDS: DOBUTamine-DoBUTrex 500mg/D5W 250 ML IV SCH ×2 (13:03→19:14)
--- NOTE | 2020-11-09 18:30 | NUR ---
Patient in room CICU 2009. I have received report from ESPERANZA Padilla and had the opportunity to ask questions and assume patient care.
--- NOTE | 2020-11-09 18:33 | NUR ---
sbar report given to night nurse, emar reviewed, questions answered, and plan of care discussed.
[2020-11-09] MEDS: docusate sodium 100mg/10ml UD cup PO SCH (19:14)
[2020-11-09] MEDS: lactobacillus rhamnosus 10,000 MMU CELLS/CAPSULE PO SCH (19:15)
[2020-11-09] MEDS: apixaban 5mg tablet PO SCH (19:15)
[2020-11-09] MEDS: K, MAG and/or Phos replacement - Verify level? MC SCH (20:00)
[2020-11-09] MEDS: sennosides/docusate sodium tablet PO SCH (21:22)
[2020-11-09] MEDS: insulin glargine (Lantus) pen - multi-dose SQ SCH (21:26)
[2020-11-10] VITALS (20 sets, daily range): BP systolic 90–122; BP diastolic 53–84
[2020-11-10] MEDS: piperacillin/tazo 4.5gm/100ml 100 ML IV SCH ×3 (00:20→15:24)
[2020-11-10] MEDS: DOBUTamine-DoBUTrex 500mg/D5W 250 ML IV SCH ×3 (00:20→15:26)
[2020-11-10 03:20] LABS: BASOPHILS % (AUTO) 0.3 % (0-1); EOSINOPHILS # (AUTO) 0.1 X10'3 (0-0.9); EOSINOPHILS % (AUTO) 1.5 % (0-6); HEMATOCRIT 41.7 % (42.0-52.0); HEMOGLOBIN 13.5 g/dl (14.0-17.9); LYMPHOCYTES # (AUTO) 0.3 X10'3 (1.1-4.8); LYMPHOCYTES % (AUTO) 4.1 % (21-51); MEAN CORPUSCULAR HEMOGLOBIN 30.1 PG (27.0-31.0); MEAN CORPUSCULAR HGB CONC 32.5 g/dL (33.0-36.5); MEAN CORPUSCULAR VOLUME 92.7 FL (78-98); MEAN PLATELET VOLUME 7.6 FL (7.4-10.4); MONOCYTES # (AUTO) 0.9 X10'3 (0-0.9); MONOCYTES % (AUTO) 11.8 % (2-12); NEUTROPHILS # (AUTO) 6.2 X10'3 (1.8-7.7); NEUTROPHILS % (AUTO) 82.3 % (42-75); PLATELET COUNT 289 X10'3 (140-440); RED BLOOD COUNT 4.49 X10'6 (4.70-6.10); RED CELL DISTRIBUTION WIDTH 14.4 % (11.5-14.5); WHITE BLOOD COUNT 7.5 X10'3 (4.5-11.0)
[2020-11-10 03:32] LABS: ALANINE AMINOTRANSFERASE 22 U/L (12-78); ALBUMIN 1.6 G/DL (3.4-5.0); ALBUMIN/GLOBULIN RATIO 0.4 (1.1-1.5); ALKALINE PHOSPHATASE 132 IU/L (46-116); ANION GAP 4 (8-16); ASPARTATE AMINO TRANSFERASE 27 U/L (10-37); BILIRUBIN,TOTAL 0.5 MG/DL (0.1-1.0); BLOOD UREA NITROGEN 44 MG/DL (7-18); CALCIUM 8.7 MG/DL (8.5-10.1); CHLORIDE 97 MMOL/L (99-107); CREATININE 1.42 MG/DL (0.60-1.10); GLUCOSE 65 MG/DL (70-104); MAGNESIUM 2.3 MG/DL (1.5-2.4); PHOSPHORUS 2.9 MG/DL (2.3-4.5); POTASSIUM 4.5 MMOL/L (3.5-5.1); SODIUM 134 MMOL/L (135-145); TOTAL CARBON DIOXIDE 33.5 MMOL/L (24-32); TOTAL PROTEIN 6.1 G/DL (6.4-8.2); eGFR 52 ML/MIN
[2020-11-10] MEDS: dextrose 50%-water 50ml dispensing syringe IV PRN (03:52)
--- NOTE | 2020-11-10 06:36 | NUR ---
Problems reprioritized. Patient report given, questions answered & plan of care reviewed with ESPERANZA Rueda.
[2020-11-10] MEDS: ipratropium/albuterol 3ml nebule IH SCH ×4 (07:00→20:25)
[2020-11-10] MEDS: apixaban 5mg tablet PO SCH ×2 (07:44→19:29)
[2020-11-10] MEDS: lactobacillus rhamnosus 10,000 MMU CELLS/CAPSULE PO SCH ×2 (07:45→19:29)
[2020-11-10] MEDS: thiamine 100mg tablet PO SCH (07:45)
[2020-11-10] MEDS: levoTHYROXINE 88mcg tablet PO SCH (07:45)
[2020-11-10] MEDS: pantoprazole 40mg Tablet.DR PO SCH (07:45)
[2020-11-10] MEDS: docusate sodium 100mg/10ml UD cup PO SCH ×2 (07:46→19:28)
[2020-11-10] MEDS: MULTIVIT-MIN/FERROUS GLUCONATE 9 MG/15 ML LIQUID PO SCH (07:46)
[2020-11-10] MEDS: folic acid 1mg tablet PO SCH (07:46)
[2020-11-10] MEDS: lisinopril 20mg tablet PO SCH (07:52)
[2020-11-10] MEDS: nicotine 21mg patch - 24 hr TD SCH (07:52)
[2020-11-10] MEDS: silver sulfadiazine cream 400gm jar TP SCH (07:55)
[2020-11-10] MEDS: NUT.TX.GLUC.INTOLER,LAC-FR,SOY (GLUCERNA) 237 ML PO SCH ×3 (07:55→18:07)
[2020-11-10] MEDS: K, MAG and/or Phos replacement - Verify level? MC SCH (08:00)
[2020-11-10] MEDS: sulfamethoxazole/trimethoprim DS (800/160mg) tablet PO SCH ×2 (08:02→19:29)
[2020-11-10] MEDS ORDERED: DOBUTamine-DoBUTrex 500mg/D5W 250 ML IV SCH ×2 (10:53→11:21)
[2020-11-10] MEDS: HYDROmorphone 1 mg/ml syringe IV PRN (15:24)
--- NOTE | 2020-11-10 16:24 | NUR ---
Received report from ESPERANZA Rueda from ICU. Awaiting patient arrival to room 3022.
--- NOTE | 2020-11-10 17:30 | NUR ---
Pt transported to [facility], Room 3022. In stable condition.
--- NOTE | 2020-11-10 17:55 | NUR ---
Orientation documentation: I have reviewed and agree with all interventions, assessments performed and documented by ESPERANZA Monroe.
--- NOTE | 2020-11-10 17:56 | NUR ---
Orientation Medication Administration: For this medication-pass time frame, all medication were reviewed, dispensed, administered and documented per hospital policy by ESPERANZA Monroe.
--- NOTE | 2020-11-10 18:17 | NUR ---
Problems reprioritized. Patient report given, questions answered & plan of care reviewed with ESPERANZA Queen. Patient stable at transfer of care.
[2020-11-10] MEDS: sennosides/docusate sodium tablet PO SCH (20:57)
[2020-11-10] MEDS: insulin glargine (Lantus) pen - multi-dose SQ SCH (20:58)
[2020-11-11] VITALS (7 sets, daily range): BP systolic 103–130; BP diastolic 65–91
[2020-11-11] MEDS: piperacillin/tazo 4.5gm/100ml 100 ML IV SCH ×4 (00:05→23:23)
[2020-11-11] MEDS: DOBUTamine-DoBUTrex 500mg/D5W 250 ML IV SCH ×2 (02:10→15:18)
--- NOTE | 2020-11-11 06:32 | NUR ---
Problems reprioritized. Patient report given, questions answered & plan of care reviewed with ESPERANZA De La Torre.
[2020-11-11 06:34] LABS: BASOPHILS % (AUTO) 0.7 % (0-1); EOSINOPHILS # (AUTO) 0.1 X10'3 (0-0.9); EOSINOPHILS % (AUTO) 2.4 % (0-6); HEMOGLOBIN 13.6 g/dl (14.0-17.9); LYMPHOCYTES # (AUTO) 0.3 X10'3 (1.1-4.8); LYMPHOCYTES % (AUTO) 5.2 % (21-51); MEAN CORPUSCULAR HEMOGLOBIN 29.3 PG (27.0-31.0); MEAN CORPUSCULAR HGB CONC 32.3 g/dL (33.0-36.5); MEAN CORPUSCULAR VOLUME 90.8 FL (78-98); MEAN PLATELET VOLUME 7.5 FL (7.4-10.4); MONOCYTES # (AUTO) 0.8 X10'3 (0-0.9); NEUTROPHILS # (AUTO) 3.9 X10'3 (1.8-7.7); NEUTROPHILS % (AUTO) 76.7 % (42-75); PLATELET COUNT 278 X10'3 (140-440); RED BLOOD COUNT 4.62 X10'6 (4.70-6.10); RED CELL DISTRIBUTION WIDTH 14.4 % (11.5-14.5); WHITE BLOOD COUNT 5.1 X10'3 (4.5-11.0)
[2020-11-11 06:39] LABS: PARTIAL THROMBOPLASTIN TIME 32 SECONDS (22-32)
[2020-11-11 06:49] LABS: ALANINE AMINOTRANSFERASE 28 U/L (12-78); ALBUMIN 1.8 G/DL (3.4-5.0); ALBUMIN/GLOBULIN RATIO 0.4 (1.1-1.5); ALKALINE PHOSPHATASE 157 IU/L (46-116); ANION GAP 0 (8-16); ASPARTATE AMINO TRANSFERASE 30 U/L (10-37); BILIRUBIN,TOTAL 0.6 MG/DL (0.1-1.0); BLOOD UREA NITROGEN 25 MG/DL (7-18); BUN/CREATININE RATIO 28.4 (5.4-32.0); CALCIUM 8.8 MG/DL (8.5-10.1); CHLORIDE 97 MMOL/L (99-107); CREATININE 0.88 MG/DL (0.60-1.10); GLUCOSE 87 MG/DL (70-104); MAGNESIUM 2.1 MG/DL (1.5-2.4); PHOSPHORUS 2.3 MG/DL (2.3-4.5); POTASSIUM 4.8 MMOL/L (3.5-5.1); SODIUM 132 MMOL/L (135-145); TOTAL CARBON DIOXIDE 35.3 MMOL/L (24-32); TOTAL PROTEIN 6.7 G/DL (6.4-8.2); eGFR 90 ML/MIN
[2020-11-11] MEDS: thiamine 100mg tablet PO SCH (07:22)
[2020-11-11] MEDS: lactobacillus rhamnosus 10,000 MMU CELLS/CAPSULE PO SCH ×2 (07:22→19:17)
[2020-11-11] MEDS: pantoprazole 40mg Tablet.DR PO SCH (07:22)
[2020-11-11] MEDS: apixaban 5mg tablet PO SCH ×2 (07:22→19:17)
[2020-11-11] MEDS: levoTHYROXINE 88mcg tablet PO SCH (07:22)
[2020-11-11] MEDS: sulfamethoxazole/trimethoprim DS (800/160mg) tablet PO SCH ×2 (07:23→19:16)
[2020-11-11] MEDS: folic acid 1mg tablet PO SCH (07:23)
[2020-11-11] MEDS: lisinopril 20mg tablet PO SCH (07:23)
[2020-11-11] MEDS: MULTIVIT-MIN/FERROUS GLUCONATE 9 MG/15 ML LIQUID PO SCH (07:24)
[2020-11-11] MEDS: nicotine 21mg patch - 24 hr TD SCH ×2 (07:24→07:33)
[2020-11-11] MEDS: docusate sodium 100mg/10ml UD cup PO SCH ×2 (07:24→19:17)
[2020-11-11] MEDS: NUT.TX.GLUC.INTOLER,LAC-FR,SOY (GLUCERNA) 237 ML PO SCH ×3 (07:33→18:00)
[2020-11-11] MEDS: silver sulfadiazine cream 400gm jar TP SCH (07:33)
[2020-11-11] MEDS: K, MAG and/or Phos replacement - Verify level? MC SCH (07:34)
[2020-11-11] MEDS: ipratropium/albuterol 3ml nebule IH SCH ×4 (07:55→19:00)
[2020-11-11 07:57] LABS: TOTAL CELLS COUNTED 100
[2020-11-11 08:00] LABS: HYPOCHROMASIA 1+; PLATELET ESTIMATE NORMAL
--- NOTE | 2020-11-11 14:39 | NUR ---
DM education: Patient's Hgb A1c 10.5%; visited patient at bedside and provided written DM education handout with verbal review and RD contact information. Patient stated he uses an insulin pen that is prescribed to take twice daily however reports that he normally takes in the morning and "forgets" to take the second dose. Encouraged patient to take medications as his PCP has prescribed. Explained relationship between wound healing and elevated blood glucose, encouraged that wound will heal more successfully with improved blood glucose control. Offered patient more protein to promote wound healing, agreed to double meat with lunch and dinner, d/w dietary. Addendum: 11/11/20 at [address] Amended: Links added.
[2020-11-11] MEDS: insulin Lispro (HumaLOG) vial - multi-dose SQ SCH (19:13)
[2020-11-11] MEDS: sennosides/docusate sodium tablet PO SCH (20:18)
[2020-11-11] MEDS: insulin glargine (Lantus) pen - multi-dose SQ SCH (21:20)
[2020-11-12] VITALS: BP 115/93
[2020-11-12 02:00] VITALS: BP 143/96
[2020-11-12] MEDS: DOBUTamine-DoBUTrex 500mg/D5W 250 ML IV SCH ×2 (02:56→15:58)
[2020-11-12] MEDS: HYDROcodone/acetaminophen 5mg/325mg tablet PO PRN ×2 (04:44→10:47)
[2020-11-12 06:00] VITALS: BP 146/89
--- NOTE | 2020-11-12 06:12 | NUR ---
Problems reprioritized. Patient report given, questions answered & plan of care reviewed with ESPERANZA De La Torre.
[2020-11-12] MEDS: levoTHYROXINE 88mcg tablet PO SCH (07:00)
[2020-11-12 07:24] LABS: BASOPHILS % (AUTO) 0.6 % (0-1); EOSINOPHILS # (AUTO) 0.1 X10'3 (0-0.9); EOSINOPHILS % (AUTO) 1.8 % (0-6); HEMATOCRIT 41.8 % (42.0-52.0); HEMOGLOBIN 13.5 g/dl (14.0-17.9); LYMPHOCYTES # (AUTO) 0.4 X10'3 (1.1-4.8); LYMPHOCYTES % (AUTO) 6.5 % (21-51); MEAN CORPUSCULAR HEMOGLOBIN 29.7 PG (27.0-31.0); MEAN CORPUSCULAR HGB CONC 32.3 g/dL (33.0-36.5); MEAN CORPUSCULAR VOLUME 91.9 FL (78-98); MEAN PLATELET VOLUME 7.5 FL (7.4-10.4); MONOCYTES # (AUTO) 0.7 X10'3 (0-0.9); MONOCYTES % (AUTO) 13.7 % (2-12); NEUTROPHILS # (AUTO) 4.2 X10'3 (1.8-7.7); NEUTROPHILS % (AUTO) 77.4 % (42-75); PLATELET COUNT 304 X10'3 (140-440); RED BLOOD COUNT 4.54 X10'6 (4.70-6.10); RED CELL DISTRIBUTION WIDTH 14.5 % (11.5-14.5); WHITE BLOOD COUNT 5.4 X10'3 (4.5-11.0)
[2020-11-12 07:56] LABS: ALANINE AMINOTRANSFERASE 39 U/L (12-78); ALBUMIN 1.9 G/DL (3.4-5.0); ALBUMIN/GLOBULIN RATIO 0.4 (1.1-1.5); ALKALINE PHOSPHATASE 165 IU/L (46-116); ANION GAP 1 (8-16); ASPARTATE AMINO TRANSFERASE 40 U/L (10-37); BILIRUBIN,TOTAL 0.5 MG/DL (0.1-1.0); BLOOD UREA NITROGEN 19 MG/DL (7-18); BUN/CREATININE RATIO 24.7 (5.4-32.0); CHLORIDE 98 MMOL/L (99-107); CREATININE 0.77 MG/DL (0.60-1.10); GLUCOSE 71 MG/DL (70-104); PHOSPHORUS 2.8 MG/DL (2.3-4.5); POTASSIUM 4.7 MMOL/L (3.5-5.1); SODIUM 134 MMOL/L (135-145); TOTAL CARBON DIOXIDE 34.7 MMOL/L (24-32); TOTAL PROTEIN 6.5 G/DL (6.4-8.2); eGFR > 90 ML/MIN
[2020-11-12] MEDS: silver sulfadiazine cream 400gm jar TP SCH (08:00)
[2020-11-12] MEDS: K, MAG and/or Phos replacement - Verify level? MC SCH (08:00)
[2020-11-12] MEDS: ipratropium/albuterol 3ml nebule IH SCH ×3 (08:15→15:23)
[2020-11-12] MEDS: lactobacillus rhamnosus 10,000 MMU CELLS/CAPSULE PO SCH (08:21)
[2020-11-12] MEDS: pantoprazole 40mg Tablet.DR PO SCH (08:21)
[2020-11-12] MEDS: apixaban 5mg tablet PO SCH (08:21)
[2020-11-12] MEDS: lisinopril 20mg tablet PO SCH (08:21)
[2020-11-12] MEDS: thiamine 100mg tablet PO SCH (08:21)
[2020-11-12] MEDS: MULTIVIT-MIN/FERROUS GLUCONATE 9 MG/15 ML LIQUID PO SCH (08:21)
[2020-11-12] MEDS: sulfamethoxazole/trimethoprim DS (800/160mg) tablet PO SCH (08:21)
[2020-11-12] MEDS: docusate sodium 100mg/10ml UD cup PO SCH (08:21)
[2020-11-12] MEDS: folic acid 1mg tablet PO SCH (08:21)
[2020-11-12] MEDS: piperacillin/tazo 4.5gm/100ml 100 ML IV SCH ×2 (08:21→16:00)
[2020-11-12] MEDS: NUT.TX.GLUC.INTOLER,LAC-FR,SOY (GLUCERNA) 237 ML PO SCH ×2 (08:22→13:31)
[2020-11-12] MEDS: nicotine 21mg patch - 24 hr TD SCH (08:22)
--- NOTE | 2020-11-12 09:52 | NUR ---
Reassessment: Pt continues with 75-100% PO intake while receiving double meat BIDLD and with 100% PO intake of Glucerna TID ordered my MD meeting estimated nutrient needs. [facility] 11/10 per I&O, receiving routine bowel care. No further nutrition intervention warranted at this time. Will continue to follow. Rec: 1. continue easy to chew/CHO controlled diet per ST recs 2. double meat BIDLD; Glucerna TID per MD 3. routine bowel care 4. weekly scaled wts Addendum: 11/12/20 at [address] Amended: Links added.
[2020-11-12 11:00] VITALS: BP 146/81
[2020-11-12 15:00] VITALS: BP 92/73
--- NOTE | 2020-11-12 15:08 | NUR ---
Report called to ESPERANZA Urbano from [facility]. Transportation arranged for 1600. Pt will be going with smalls, PICC line in the right upper arm, and possibly dobutamine drip. Rapid COVID PCR came back negative.
[2020-11-12 15:58] VITALS: BP 146/81
--- NOTE | 2020-11-12 18:00 | NUR ---
Patient in room PCU 3022. I have received report from Wil MATA and had the opportunity to ask questions and assume patient care. Dobutamine was currently shut off and was restarted at 5mcg as per order. Patient is alert and oriented, EMS at bedside and setting up to transfer to [facility]. I went with patient and EMS for patient safety with Dobutamine drip. Patient was transferred and admitted to [facility] with no complications.
== END 2020-11-12 18:25 | DRG 720 ==
LOC: ER 23:46 → ED HOLD 11-03 01:48 → ICU 2S 11-03 03:20 → CICU 2S 11-07 17:19 → PCU 3S 11-10 17:12
PROVIDERS: ADMIT Internal Medicine; ATTEND Internal Medicine
PROC: 5A1945Z Respiratory Ventilation, 24-96 Consecutive Hours (ICD-10-PCS; principal; 2020-11-03)
PROC: 0BH17EZ Insertion of Endotracheal Airway into Trachea, Via Natural or Artificial Opening (ICD-10-PCS; 2020-11-03)
PROC: 02HV33Z Insertion of Infusion Device into Superior Vena Cava, Percutaneous Approach (ICD-10-PCS; 2020-11-03)
PROC: B548ZZA Ultrasonography of Superior Vena Cava, Guidance (ICD-10-PCS; 2020-11-03)
PROC: 5A09357 Assistance with Respiratory Ventilation, Less than 24 Consecutive Hours, Continuous Positive Airway Pressure (ICD-10-PCS; 2020-11-06)
PROC: 5A0935A Assistance with Respiratory Ventilation, Less than 24 Consecutive Hours, High Flow/Velocity Cannula (ICD-10-PCS; 2020-11-06)
PROC: 5A09357 Assistance with Respiratory Ventilation, Less than 24 Consecutive Hours, Continuous Positive Airway Pressure (ICD-10-PCS; 2020-11-07)
PROC: 5A0935A Assistance with Respiratory Ventilation, Less than 24 Consecutive Hours, High Flow/Velocity Cannula (ICD-10-PCS; 2020-11-07)
PROC: 5A09357 Assistance with Respiratory Ventilation, Less than 24 Consecutive Hours, Continuous Positive Airway Pressure (ICD-10-PCS; 2020-11-08)
PROC: 5A0935A Assistance with Respiratory Ventilation, Less than 24 Consecutive Hours, High Flow/Velocity Cannula (ICD-10-PCS; 2020-11-08)
PROC: 5A09357 Assistance with Respiratory Ventilation, Less than 24 Consecutive Hours, Continuous Positive Airway Pressure (ICD-10-PCS; 2020-11-09)
PROC: 5A09357 Assistance with Respiratory Ventilation, Less than 24 Consecutive Hours, Continuous Positive Airway Pressure (ICD-10-PCS; 2020-11-10)
PROC: 5A09357 Assistance with Respiratory Ventilation, Less than 24 Consecutive Hours, Continuous Positive Airway Pressure (ICD-10-PCS; 2020-11-11)
DX: A41.2 Sepsis due to unspecified staphylococcus (principal); I50.21 Acute systolic (congestive) heart failure; J44.0 Chronic obstructive pulmonary disease with (acute) lower respiratory infection; J96.01 Acute respiratory failure with hypoxia; J96.02 Acute respiratory failure with hypercapnia; J15.212 Pneumonia due to Methicillin resistant Staphylococcus aureus; E11.649 Type 2 diabetes mellitus with hypoglycemia without coma; E66.9 Obesity, unspecified; E87.2 Acidosis; N17.9 Acute kidney failure, unspecified; F15.10 Other stimulant abuse, uncomplicated; F17.200 Nicotine dependence, unspecified, uncomplicated; I11.0 Hypertensive heart disease with heart failure; G93.40 Encephalopathy, unspecified; I27.20 Pulmonary hypertension, unspecified; E87.5 Hyperkalemia; I42.9 Cardiomyopathy, unspecified; E46 Unspecified protein-calorie malnutrition; I48.92 Unspecified atrial flutter; E03.9 Hypothyroidism, unspecified; I50.82 Biventricular heart failure; Z20.822 Contact with and (suspected) exposure to COVID-19; L03.115 Cellulitis of right lower limb; L03.116 Cellulitis of left lower limb; N50.89 Other specified disorders of the male genital organs; R65.21 Severe sepsis with septic shock; Z79.01 Long term (current) use of anticoagulants; Z86.711 Personal history of pulmonary embolism; Z86.718 Personal history of other venous thrombosis and embolism; Z68.39 Body mass index [BMI] 39.0-39.9, adult; Z79.899 Other long term (current) drug therapy; Z79.4 Long term (current) use of insulin
CPT/HCPCS: 36415; 36573; 36600; 70450; 71045; 76937; 80048; 80053; 80069; 80074; 80202; 81001; 82550; 82803; 82948; 83036; 83605; 83735; 83880; 84100; 84134; 84145; 84439; 84443; 84484; 85007; 85018; 85025; 85610; 85730; 86703; 87040; 87070; 87075; 87077; 87081; 87088; 87102; 87186; 87635; 92508; 92616; 93005; 93306; 93308; 93922; 94002; 94003; 94640; 94660; 94667; 94668; 94760; 96365; 97110; 97116; 97162; 97530; 99291; C9113; G0378; J1170; J1250; J1650; J1815; J1940; J2543; J3010; J3370; J3490; J7030

== ENCOUNTER 2021-01-26 13:07 | Inpatient (IN) | payer MEDICAID ==
[~2021-01-26] VITALS: Ht 185.4 cm; Wt 118.2 kg
[~2021-01-26 13:07] MED LIST: AMLO2.5T2 PO; APIX5TAB3 PO; INSU100C10 SQ; IPRA3AMP31 IH; NICO-687 TOP; NITR1PAT68 TD; SYN0.088T PO
[2021-01-26] MEDS ORDERED: heparin 10,000 units/1 ML INJ IV ONE (13:15)
[2021-01-26] MEDS ORDERED: heparin 25,000 UNIT/250ml bag 250 ML IV SCH ×2 (13:15→16:20)
[2021-01-26] MEDS ORDERED: morphine 4 MG/ML inj SYRINge IV ONE ×2 (13:45→14:45)
[2021-01-26 13:57] LABS: BASOPHILS # (AUTO) 0.1 X10'3 (0-0.2); BASOPHILS % (AUTO) 0.9 % (0-1); EOSINOPHILS # (AUTO) 0.2 X10'3 (0-0.9); EOSINOPHILS % (AUTO) 2.6 % (0-6); HEMATOCRIT 39.3 % (42.0-52.0); HEMOGLOBIN 12.6 g/dl (14.0-17.9); LYMPHOCYTES % (AUTO) 13.4 % (21-51); MEAN CORPUSCULAR HEMOGLOBIN 30.4 PG (27.0-31.0); MEAN CORPUSCULAR VOLUME 94.8 FL (78-98); MEAN PLATELET VOLUME 7.1 FL (7.4-10.4); MONOCYTES # (AUTO) 0.8 X10'3 (0-0.9); MONOCYTES % (AUTO) 10.9 % (2-12); NEUTROPHILS # (AUTO) 5.2 X10'3 (1.8-7.7); NEUTROPHILS % (AUTO) 72.2 % (42-75); PLATELET COUNT 379 X10'3 (140-440); RED BLOOD COUNT 4.15 X10'6 (4.70-6.10); RED CELL DISTRIBUTION WIDTH 17.6 % (11.5-14.5); WHITE BLOOD COUNT 7.2 X10'3 (4.5-11.0)
[2021-01-26 14:11] LABS: PARTIAL THROMBOPLASTIN TIME 31 SECONDS (22-32)
[2021-01-26 15:09] LABS: ALANINE AMINOTRANSFERASE 19 U/L (12-78); ALBUMIN 3.2 G/DL (3.4-5.0); ALBUMIN/GLOBULIN RATIO 0.6 (1.1-1.5); ALKALINE PHOSPHATASE 171 IU/L (46-116); ANION GAP 4 (8-16); ASPARTATE AMINO TRANSFERASE 14 U/L (10-37); BILIRUBIN,TOTAL 0.8 MG/DL (0.1-1.0); BLOOD UREA NITROGEN 10 MG/DL (7-18); BUN/CREATININE RATIO 11.6 (5.4-32.0); CALCIUM 9.7 MG/DL (8.5-10.1); CHLORIDE 102 MMOL/L (99-107); CREATININE 0.86 MG/DL (0.60-1.10); GLUCOSE 83 MG/DL (70-104); POTASSIUM 4.8 MMOL/L (3.5-5.1); SODIUM 139 MMOL/L (135-145); TOTAL CARBON DIOXIDE 32.9 MMOL/L (24-32); TOTAL PROTEIN 8.4 G/DL (6.4-8.2); eGFR > 90 ML/MIN
[2021-01-26 15:37] LABS: URINE AMPHETAMINE SCREEN NEGATIVE (Neg); URINE BARBITUATE SCREEN NEGATIVE (Neg); URINE BENZODIAZEPINES SCREEN NEGATIVE (Neg); URINE CANNABINOID SCREEN POSITIVE (Neg); URINE COCAINE SCREEN NEGATIVE (Neg); URINE METHADONE SCREEN NEGATIVE (Neg); URINE OPIATE SCREEN POSITIVE (Neg); URINE PHENCYCLIDINE SCREEN NEGATIVE (Neg)
[2021-01-26 15:40] LABS: CLARITY,URINE CLEAR (Clear); COLOR,URINE YELLOW (Yellow); GLUCOSE, URINE NEGATIVE (Neg); KETONES,URINE NEGATIVE (Neg); LEUKOCYTE ESTERASE ,URINE NEGATIVE (Neg); NITRITES, URINE NEGATIVE (Neg); OCCULT BLOOD,URINE NEGATIVE (Neg); PH,URINE 7.5 (4.8-8.0); PROTEIN,URINE NEGATIVE (Neg)
[2021-01-26 15:52] LABS: UA COLLECTION TYPE CLN CATCH MIDSTREAM
[2021-01-26] MEDS ORDERED: magnesium 2GM in 50ml NS 50 ML IV PRN (16:15)
[2021-01-26] MEDS ORDERED: dextrose 50%-water 50ml dispensing syringe IV PRN ×2 (16:15)
[2021-01-26] MEDS ORDERED: magnesium 4gm in 100ml NS 100 ML IV PRN (16:15)
[2021-01-26] MEDS ORDERED: MESSAGE TO PHARMACY PO ONE (16:15)
[2021-01-26] MEDS ORDERED: dextrose ORAL solution 15 GM/59 ML bottle PO PRN ×2 (16:15)
[2021-01-26] MEDS ORDERED: insulin Lispro (HumaLOG) vial - multi-dose SQ SCH (16:15)
[2021-01-26] MEDS ORDERED: ondansetron/PF 4mg/2ml inj IV PRN (16:15)
[2021-01-26] MEDS ORDERED: potassium Cl 20 mEq SR tablet PO PRN ×2 (16:15)
[2021-01-26] MEDS ORDERED: potassium Cl 40MEQ/1/2NS 520ml 520 ML IV PRN ×2 (16:15)
[2021-01-26] MEDS ORDERED: glucagon, human recombinant 1mg kit SUBCUT PRN (16:15)
[2021-01-26] MEDS ORDERED: magnesium Cl slow-release 64mg tablet PO PRN (16:15)
[2021-01-26] MEDS ORDERED: acetaminophen 325mg tablet PO PRN (16:15)
[2021-01-26] MEDS ORDERED: morphine 2 MG/ML inj. syringe IV PRN (16:15)
[2021-01-26] MEDS ORDERED: heparin 10,000 units/1 ML INJ IV PRN (16:20)
[2021-01-26 16:31] LABS: HEMOGLOBIN A1C 7.4 % (4.5-6.2)
[2021-01-26] MEDS: heparin 25,000 UNIT/250ml bag 250 ML IV SCH (16:58)
[2021-01-26] MEDS ORDERED: ATR0.5NEB NEB (17:49)
[2021-01-26] MEDS ORDERED: LISI2.5T89 PO (17:49)
[2021-01-26] MEDS ORDERED: DIGO250T2 PO (17:49)
[2021-01-26] MEDS ORDERED: ISOS30TA84 PO (17:49)
[2021-01-26] MEDS ORDERED: INSU100I31 SQ (17:49)
[2021-01-26] MEDS ORDERED: LEVO88TA2 PO (17:49)
[2021-01-26] MEDS ORDERED: INSU100I45 SQ (17:49)
[2021-01-26] MEDS ORDERED: APIX5TAB3 PO (17:49)
[2021-01-26] MEDS ORDERED: ALBU2.5V13 NEB (17:49)
[2021-01-26] MEDS ORDERED: ESCI-8 PO (17:49)
[2021-01-26] MEDS ORDERED: PANT-47 PO (17:49)
[2021-01-26] MEDS ORDERED: UMEC1DIS INH (17:49)
[2021-01-26] MEDS ORDERED: THIA100T70 PO (17:49)
[2021-01-26] MEDS ORDERED: CARV6.253 PO (17:49)
[2021-01-26] MEDS ORDERED: FOLI0.4T6 PO (17:50)
[2021-01-26] MEDS: HYDROcodone/acetaminophen 5mg/325mg tablet PO PRN (19:44)
[2021-01-26] MEDS: docusate sod 100mg capsule PO SCH (20:00)
[2021-01-26] MEDS: K and/or MAG REPLACEMENT MC SCH (20:00)
--- NOTE | 2021-01-26 20:25 | NUR ---
3RD TROPONIN HAD HEMOLYZED, REDRAWN NOW WITH DVT PTT.
[2021-01-26] MEDS: insulin glargine (Lantus) pen - multi-dose SQ SCH (21:00)
[2021-01-26] MEDS ORDERED: warfarin 5mg tablet PO ONE (21:00)
--- NOTE | 2021-01-26 21:34 | NUR ---
CALL FROM LAB THAT VALUE FOR PTT WAS NOT "ABLE TO BE OBTAINED." HEPARIN GTT WAS STOPPED FOR FIVE MINUTES PRIOR TO DRAW AT 1999, WAS DRAWN ON OPPOSITE SIDE OF HEPARIN INFUSION. PT HAS LEFT TO FLOOR, ESPERANZA MARVIN UP TO GIVE THIS INFORMATION TO ESPERANZA PATEL ON PCU. LAB SENT TO PCU TO DO STAT PTT REDRAW
[2021-01-26 21:45] VITALS: BP 118/74
[2021-01-27 02:00] VITALS: BP 129/69
[2021-01-27 02:04] LABS: BASOPHILS # (AUTO) 0.1 X10'3 (0-0.2); BASOPHILS % (AUTO) 1.1 % (0-1); EOSINOPHILS # (AUTO) 0.3 X10'3 (0-0.9); EOSINOPHILS % (AUTO) 4.2 % (0-6); HEMATOCRIT 36.5 % (42.0-52.0); HEMOGLOBIN 11.5 g/dl (14.0-17.9); LYMPHOCYTES # (AUTO) 1.6 X10'3 (1.1-4.8); MEAN CORPUSCULAR HEMOGLOBIN 30.1 PG (27.0-31.0); MEAN CORPUSCULAR HGB CONC 31.6 g/dL (33.0-36.5); MEAN CORPUSCULAR VOLUME 95.4 FL (78-98); MEAN PLATELET VOLUME 7.2 FL (7.4-10.4); MONOCYTES # (AUTO) 0.8 X10'3 (0-0.9); MONOCYTES % (AUTO) 10.9 % (2-12); NEUTROPHILS # (AUTO) 4.9 X10'3 (1.8-7.7); NEUTROPHILS % (AUTO) 62.8 % (42-75); PLATELET COUNT 381 X10'3 (140-440); RED BLOOD COUNT 3.82 X10'6 (4.70-6.10); RED CELL DISTRIBUTION WIDTH 17.5 % (11.5-14.5); WHITE BLOOD COUNT 7.7 X10'3 (4.5-11.0)
[2021-01-27 02:16] LABS: ALBUMIN 2.7 G/DL (3.4-5.0); ANION GAP 2 (8-16); BLOOD UREA NITROGEN 8 MG/DL (7-18); BUN/CREATININE RATIO 10.3 (5.4-32.0); CALCIUM 9.3 MG/DL (8.5-10.1); CHLORIDE 102 MMOL/L (99-107); CREATININE 0.78 MG/DL (0.60-1.10); GLUCOSE 111 MG/DL (70-104); MAGNESIUM 1.9 MG/DL (1.5-2.4); POTASSIUM 4.5 MMOL/L (3.5-5.1); SODIUM 139 MMOL/L (135-145); TOTAL CARBON DIOXIDE 35.5 MMOL/L (24-32); eGFR > 90 ML/MIN
[2021-01-27] MEDS: heparin 25,000 UNIT/250ml bag 250 ML IV SCH ×2 (02:26→19:18)
--- NOTE | 2021-01-27 06:10 | NUR ---
Patient in room PCU 3021. I have received report from Godwin MATA and had the opportunity to ask questions and assume patient care.
[2021-01-27 07:00] VITALS: BP 124/75
[2021-01-27] MEDS: docusate sod 100mg capsule PO SCH ×2 (07:24→19:19)
[2021-01-27] MEDS: HYDROcodone/acetaminophen 5mg/325mg tablet PO PRN ×3 (07:24→22:29)
[2021-01-27] MEDS: K and/or MAG REPLACEMENT MC SCH ×2 (08:00→20:00)
[2021-01-27 11:00] VITALS: BP 106/74
[2021-01-27] MEDS ORDERED: traMADol 50MG tablet PO PRN (13:00)
--- NOTE | 2021-01-27 13:50 | NUR ---
DM Consult: Pt A1C 7.4 down from 10.5 October admit this year. During prior admit pt reported not taking insulin BID and was encouraged to take DM meds per Rx. Written DM ed w/ RD contact information placed in pt chart this admit. Addendum: 01/27/21 at [address] Amended: Links added.
[2021-01-27 15:00] VITALS: BP 125/79
[2021-01-27 18:00] VITALS: BP 122/81
--- NOTE | 2021-01-27 18:02 | NUR ---
Problems reprioritized. Patient report given, questions answered & plan of care reviewed with Emmy MATA.
[2021-01-27] MEDS ORDERED: albuterol 2.5 MG/3 ML nebule NEB PRN (18:15)
[2021-01-27] MEDS: carvedilol 6.25mg tablet PO SCH (19:19)
[2021-01-27] MEDS: spironolactone 25 MG tablet PO SCH (19:26)
[2021-01-27] MEDS: mineral oil/petrolatum, white cream 113gm jar TP SCH (19:26)
[2021-01-27] MEDS: ipratropium 0.5 MG/2.5ML nebule NEB SCH (19:31)
[2021-01-27] MEDS ORDERED: warfarin 5mg tablet PO ONE (21:00)
[2021-01-27] MEDS: insulin glargine (Lantus) pen - multi-dose SQ SCH (21:00)
[2021-01-27 22:00] VITALS: BP 123/77
[2021-01-28 02:00] VITALS: BP 130/79
[2021-01-28 05:21] LABS: BASOPHILS # (AUTO) 0.1 X10'3 (0-0.2); BASOPHILS % (AUTO) 1.2 % (0-1); EOSINOPHILS # (AUTO) 0.3 X10'3 (0-0.9); EOSINOPHILS % (AUTO) 4.3 % (0-6); HEMATOCRIT 39.2 % (42.0-52.0); HEMOGLOBIN 12.5 g/dl (14.0-17.9); LYMPHOCYTES # (AUTO) 1.3 X10'3 (1.1-4.8); LYMPHOCYTES % (AUTO) 19.4 % (21-51); MEAN CORPUSCULAR HEMOGLOBIN 30.3 PG (27.0-31.0); MEAN CORPUSCULAR HGB CONC 31.8 g/dL (33.0-36.5); MEAN CORPUSCULAR VOLUME 95.2 FL (78-98); MEAN PLATELET VOLUME 6.9 FL (7.4-10.4); MONOCYTES # (AUTO) 0.8 X10'3 (0-0.9); NEUTROPHILS % (AUTO) 62.1 % (42-75); PLATELET COUNT 334 X10'3 (140-440); RED BLOOD COUNT 4.11 X10'6 (4.70-6.10); RED CELL DISTRIBUTION WIDTH 17.1 % (11.5-14.5); WHITE BLOOD COUNT 6.5 X10'3 (4.5-11.0)
[2021-01-28 05:39] LABS: ALBUMIN 2.8 G/DL (3.4-5.0); ANION GAP -5 (8-16); BLOOD UREA NITROGEN 7 MG/DL (7-18); BUN/CREATININE RATIO 9.5 (5.4-32.0); CALCIUM 9.3 MG/DL (8.5-10.1); CHLORIDE 102 MMOL/L (99-107); CREATININE 0.74 MG/DL (0.60-1.10); GLUCOSE 98 MG/DL (70-104); MAGNESIUM 1.7 MG/DL (1.5-2.4); POTASSIUM 4.2 MMOL/L (3.5-5.1); SODIUM 136 MMOL/L (135-145); TOTAL CARBON DIOXIDE 38.5 MMOL/L (24-32); eGFR > 90 ML/MIN
--- NOTE | 2021-01-28 06:15 | NUR ---
Problems reprioritized. Patient report given, questions answered & plan of care reviewed with ESPERANZA Pedroza.
--- NOTE | 2021-01-28 06:25 | NUR ---
Patient in room PCU 3021. I have received report from Bernice MATA and had the opportunity to ask questions and assume patient care.
[2021-01-28 07:00] VITALS: BP 132/73
[2021-01-28] MEDS: K and/or MAG REPLACEMENT MC SCH ×2 (08:00→20:00)
[2021-01-28] MEDS: ipratropium 0.5 MG/2.5ML nebule NEB SCH ×2 (08:17→19:52)
[2021-01-28] MEDS: ESCITALOPRAM OXALATE 5 MG TABLET PO SCH (09:12)
[2021-01-28] MEDS: spironolactone 25 MG tablet PO SCH (09:13)
[2021-01-28] MEDS: isosorbide mononitrate 30mg tab.SR.24H PO SCH (09:13)
[2021-01-28] MEDS: lisinopril 2.5mg tablet PO SCH (09:13)
[2021-01-28] MEDS: thiamine 100mg tablet PO SCH (09:14)
[2021-01-28] MEDS: carvedilol 6.25mg tablet PO SCH ×2 (09:14→19:27)
[2021-01-28] MEDS: docusate sod 100mg capsule PO SCH ×2 (09:14→19:27)
[2021-01-28] MEDS: pantoprazole 40mg Tablet.DR PO SCH (09:14)
[2021-01-28] MEDS: digoxin 250mcg (0.25mg) tablet PO SCH (09:15)
[2021-01-28] MEDS: levoTHYROXINE 88mcg tablet PO SCH (09:15)
[2021-01-28] MEDS: folic acid 1mg tablet PO SCH (09:15)
[2021-01-28] MEDS: HYDROcodone/acetaminophen 5mg/325mg tablet PO PRN ×2 (09:18→19:30)
[2021-01-28] MEDS: mineral oil/petrolatum, white cream 113gm jar TP SCH ×2 (10:45→19:28)
[2021-01-28] MEDS: heparin 25,000 UNIT/250ml bag 250 ML IV SCH (10:45)
[2021-01-28 11:00] VITALS: BP 111/74
[2021-01-28 15:14] VITALS: BP 103/66
--- NOTE | 2021-01-28 17:56 | NUR ---
Orientee documentation: I have reviewed and agree with all interventions, assessments performed and documented by ESPERANZA Solomon.
--- NOTE | 2021-01-28 17:57 | NUR ---
[place]rient[place] Medication Administration: For this medication-pass time frame, all medication were reviewed, dispensed, administered and documented per hospital policy by ESPERANZA Solomon.
[2021-01-28 18:00] VITALS: BP 121/80
--- NOTE | 2021-01-28 18:02 | NUR ---
Problems reprioritized. Patient report given, questions answered & plan of care reviewed with ESPERANZA Queen. Patient stable at transfer of care.
--- NOTE | 2021-01-28 18:03 | NUR ---
Problems reprioritized. Patient report given, questions answered & plan of care reviewed with Bernice MATA.
[2021-01-28] MEDS: insulin glargine (Lantus) pen - multi-dose SQ SCH (21:00)
[2021-01-28] MEDS ORDERED: warfarin 7.5mg tablet PO ONE (21:00)
[2021-01-28 22:00] VITALS: BP 120/78
[2021-01-29] MEDS: heparin 25,000 UNIT/250ml bag 250 ML IV SCH ×3 (00:24→19:31)
[2021-01-29 02:00] VITALS: BP 108/70
[2021-01-29 02:08] LABS: ANION GAP 4 (8-16); BLOOD UREA NITROGEN 8 MG/DL (7-18); BUN/CREATININE RATIO 9.5 (5.4-32.0); CHLORIDE 101 MMOL/L (99-107); CREATININE 0.84 MG/DL (0.60-1.10); GLUCOSE 122 MG/DL (70-104); SODIUM 143 MMOL/L (135-145)
[2021-01-29 02:09] LABS: ALBUMIN 2.8 G/DL (3.4-5.0); CALCIUM 9.1 MG/DL (8.5-10.1); MAGNESIUM 1.7 MG/DL (1.5-2.4); eGFR > 90 ML/MIN
[2021-01-29 02:11] LABS: POTASSIUM 4.3 MMOL/L (3.5-5.1)
[2021-01-29 02:13] LABS: BASOPHILS % (AUTO) 0.3 % (0-1); EOSINOPHILS # (AUTO) 0.2 X10'3 (0-0.9); EOSINOPHILS % (AUTO) 3.4 % (0-6); HEMATOCRIT 36.9 % (42.0-52.0); HEMOGLOBIN 11.6 g/dl (14.0-17.9); LYMPHOCYTES # (AUTO) 1.4 X10'3 (1.1-4.8); LYMPHOCYTES % (AUTO) 22.2 % (21-51); MEAN CORPUSCULAR HEMOGLOBIN 29.8 PG (27.0-31.0); MEAN CORPUSCULAR HGB CONC 31.5 g/dL (33.0-36.5); MEAN CORPUSCULAR VOLUME 94.7 FL (78-98); MEAN PLATELET VOLUME 7.6 FL (7.4-10.4); MONOCYTES # (AUTO) 0.7 X10'3 (0-0.9); MONOCYTES % (AUTO) 10.3 % (2-12); NEUTROPHILS # (AUTO) 4.1 X10'3 (1.8-7.7); NEUTROPHILS % (AUTO) 63.8 % (42-75); PLATELET COUNT 346 X10'3 (140-440); RED BLOOD COUNT 3.89 X10'6 (4.70-6.10); RED CELL DISTRIBUTION WIDTH 16.7 % (11.5-14.5); WHITE BLOOD COUNT 6.5 X10'3 (4.5-11.0)
--- NOTE | 2021-01-29 06:00 | NUR ---
Patient in room PCU 3021. I have received report from LEILA MATA and had the opportunity to ask questions and assume patient care.
--- NOTE | 2021-01-29 06:19 | NUR ---
Problems reprioritized. Patient report given, questions answered & plan of care reviewed with ESPERANZA Francois.
[2021-01-29] MEDS: K and/or MAG REPLACEMENT MC SCH ×2 (07:29→20:00)
[2021-01-29 07:39] VITALS: BP 127/78
[2021-01-29] MEDS: ipratropium 0.5 MG/2.5ML nebule NEB SCH ×2 (08:53→20:39)
[2021-01-29] MEDS: lisinopril 2.5mg tablet PO SCH (09:12)
[2021-01-29] MEDS: ESCITALOPRAM OXALATE 5 MG TABLET PO SCH (09:12)
[2021-01-29] MEDS: isosorbide mononitrate 30mg tab.SR.24H PO SCH (09:12)
[2021-01-29] MEDS: spironolactone 25 MG tablet PO SCH (09:13)
[2021-01-29] MEDS: carvedilol 6.25mg tablet PO SCH ×2 (09:13→19:22)
[2021-01-29] MEDS: digoxin 250mcg (0.25mg) tablet PO SCH (09:13)
[2021-01-29] MEDS: thiamine 100mg tablet PO SCH (09:13)
[2021-01-29] MEDS: folic acid 1mg tablet PO SCH (09:14)
[2021-01-29] MEDS: levoTHYROXINE 88mcg tablet PO SCH (09:14)
[2021-01-29] MEDS: docusate sod 100mg capsule PO SCH ×2 (09:14→19:22)
[2021-01-29] MEDS: pantoprazole 40mg Tablet.DR PO SCH (09:14)
[2021-01-29] MEDS: HYDROcodone/acetaminophen 5mg/325mg tablet PO PRN ×2 (09:14→20:04)
[2021-01-29] MEDS: mineral oil/petrolatum, white cream 113gm jar TP SCH ×2 (09:15→19:22)
[2021-01-29 12:10] VITALS: BP 122/77
[2021-01-29 17:07] VITALS: BP 104/71
[2021-01-29 18:00] VITALS: BP 112/75
[2021-01-29] MEDS ORDERED: warfarin 10mg tablet PO ONE (21:00)
[2021-01-29] MEDS: insulin glargine (Lantus) pen - multi-dose SQ SCH (21:00)
[2021-01-30] VITALS (7 sets, daily range): BP systolic 108–130; BP diastolic 63–85
[2021-01-30 00:47] LABS: BASOPHILS % (AUTO) 0.2 % (0-1); EOSINOPHILS # (AUTO) 0.3 X10'3 (0-0.9); EOSINOPHILS % (AUTO) 3.2 % (0-6); HEMATOCRIT 37.8 % (42.0-52.0); HEMOGLOBIN 12.1 g/dl (14.0-17.9); LYMPHOCYTES # (AUTO) 1.8 X10'3 (1.1-4.8); LYMPHOCYTES % (AUTO) 22.8 % (21-51); MEAN CORPUSCULAR HEMOGLOBIN 30.6 PG (27.0-31.0); MEAN CORPUSCULAR HGB CONC 32.1 g/dL (33.0-36.5); MEAN CORPUSCULAR VOLUME 95.3 FL (78-98); MEAN PLATELET VOLUME 7.5 FL (7.4-10.4); MONOCYTES # (AUTO) 0.9 X10'3 (0-0.9); MONOCYTES % (AUTO) 11.4 % (2-12); NEUTROPHILS # (AUTO) 4.8 X10'3 (1.8-7.7); NEUTROPHILS % (AUTO) 62.4 % (42-75); PLATELET COUNT 400 X10'3 (140-440); RED BLOOD COUNT 3.97 X10'6 (4.70-6.10); RED CELL DISTRIBUTION WIDTH 16.8 % (11.5-14.5); WHITE BLOOD COUNT 7.8 X10'3 (4.5-11.0)
[2021-01-30 01:04] LABS: ANION GAP 7 (8-16); BLOOD UREA NITROGEN 10 MG/DL (7-18); BUN/CREATININE RATIO 12.5 (5.4-32.0); CALCIUM 9.2 MG/DL (8.5-10.1); CHLORIDE 98 MMOL/L (99-107); GLUCOSE 157 MG/DL (70-104); MAGNESIUM 1.7 MG/DL (1.5-2.4); POTASSIUM 4.6 MMOL/L (3.5-5.1); SODIUM 141 MMOL/L (135-145); TOTAL CARBON DIOXIDE 36.2 MMOL/L (24-32); eGFR > 90 ML/MIN
--- NOTE | 2021-01-30 06:00 | NUR ---
Patient in room PCU 3021. I have received report from LEILA MATA and had the opportunity to ask questions and assume patient care.
--- NOTE | 2021-01-30 06:15 | NUR ---
Problems reprioritized. Patient report given, questions answered & plan of care reviewed with ESPERANZA Francois.
[2021-01-30] MEDS: ipratropium 0.5 MG/2.5ML nebule NEB SCH ×2 (07:39→20:16)
[2021-01-30] MEDS: heparin 25,000 UNIT/250ml bag 250 ML IV SCH ×2 (07:44→22:20)
[2021-01-30] MEDS: K and/or MAG REPLACEMENT MC SCH ×2 (08:00→20:00)
[2021-01-30] MEDS: thiamine 100mg tablet PO SCH (08:20)
[2021-01-30] MEDS: pantoprazole 40mg Tablet.DR PO SCH (08:20)
[2021-01-30] MEDS: docusate sod 100mg capsule PO SCH ×2 (08:20→20:48)
[2021-01-30] MEDS: levoTHYROXINE 88mcg tablet PO SCH (08:20)
[2021-01-30] MEDS: lisinopril 2.5mg tablet PO SCH (08:21)
[2021-01-30] MEDS: spironolactone 25 MG tablet PO SCH (08:21)
[2021-01-30] MEDS: folic acid 1mg tablet PO SCH (08:21)
[2021-01-30] MEDS: ESCITALOPRAM OXALATE 5 MG TABLET PO SCH (08:21)
[2021-01-30] MEDS: isosorbide mononitrate 30mg tab.SR.24H PO SCH (08:22)
[2021-01-30] MEDS: digoxin 250mcg (0.25mg) tablet PO SCH (08:22)
[2021-01-30] MEDS: carvedilol 6.25mg tablet PO SCH ×2 (08:22→20:48)
[2021-01-30] MEDS: mineral oil/petrolatum, white cream 113gm jar TP SCH ×2 (08:23→20:56)
[2021-01-30] MEDS: HYDROcodone/acetaminophen 5mg/325mg tablet PO PRN ×3 (08:23→20:49)
--- NOTE | 2021-01-30 11:10 | NUR ---
Initial: Pt admit for DVT. Per WOC notes pt with BLE cellulitis and no open wounds. Pt on a CHO controlled diet with mostly 100% PO intake throughout LOS. D/w dietary to send double protein with meals for satiety. LB 01/29, receiving routine bowel care. Will continue to follow and monitor need for further nutrition intervention. Recommendations: 1) Continue CHO controlled diet 2) Double eggs WB, double meat BIDLD 3) Routine bowel care 4) Weekly scaled weights Addendum: 01/30/21 at [address] Amended: Links added.
--- NOTE | 2021-01-30 11:59 | NUR ---
Orders to DC telemetry monitoring put in per Dr. Garvey.
--- NOTE | 2021-01-30 18:18 | NUR ---
Patient in room PCU 3021. I have received report from Priscila MATA and had the opportunity to ask questions and assume patient care.
[2021-01-30] MEDS: insulin glargine (Lantus) pen - multi-dose SQ SCH (21:00)
[2021-01-30] MEDS ORDERED: warfarin 10mg tablet PO ONE (21:00)
[2021-01-31 02:00] VITALS: BP 107/70
[2021-01-31 04:59] LABS: ANION GAP 2 (8-16); BLOOD UREA NITROGEN 12 MG/DL (7-18); BUN/CREATININE RATIO 14.6 (5.4-32.0); CALCIUM 9.3 MG/DL (8.5-10.1); CHLORIDE 100 MMOL/L (99-107); CREATININE 0.82 MG/DL (0.60-1.10); GLUCOSE 151 MG/DL (70-104); MAGNESIUM 1.7 MG/DL (1.5-2.4); POTASSIUM 4.6 MMOL/L (3.5-5.1); SODIUM 139 MMOL/L (135-145); TOTAL CARBON DIOXIDE 37.5 MMOL/L (24-32); eGFR > 90 ML/MIN
[2021-01-31 05:23] LABS: BASOPHILS % (AUTO) 0.2 % (0-1); EOSINOPHILS # (AUTO) 0.3 X10'3 (0-0.9); EOSINOPHILS % (AUTO) 3.8 % (0-6); HEMATOCRIT 39.2 % (42.0-52.0); HEMOGLOBIN 12.6 g/dl (14.0-17.9); LYMPHOCYTES # (AUTO) 1.7 X10'3 (1.1-4.8); LYMPHOCYTES % (AUTO) 26.1 % (21-51); MEAN CORPUSCULAR HEMOGLOBIN 30.6 PG (27.0-31.0); MEAN CORPUSCULAR HGB CONC 32.2 g/dL (33.0-36.5); MEAN CORPUSCULAR VOLUME 95.1 FL (78-98); MEAN PLATELET VOLUME 7.5 FL (7.4-10.4); MONOCYTES # (AUTO) 0.8 X10'3 (0-0.9); MONOCYTES % (AUTO) 11.7 % (2-12); NEUTROPHILS # (AUTO) 3.9 X10'3 (1.8-7.7); NEUTROPHILS % (AUTO) 58.2 % (42-75); PLATELET COUNT 341 X10'3 (140-440); RED BLOOD COUNT 4.13 X10'6 (4.70-6.10); RED CELL DISTRIBUTION WIDTH 16.7 % (11.5-14.5); WHITE BLOOD COUNT 6.7 X10'3 (4.5-11.0)
[2021-01-31] MEDS: heparin 25,000 UNIT/250ml bag 250 ML IV SCH (05:35)
[2021-01-31 06:00] VITALS: BP 109/66
--- NOTE | 2021-01-31 06:30 | NUR ---
Patient in room PCU 3021. I have received report from Yessica MATA and had the opportunity to ask questions and assume patient care.
--- NOTE | 2021-01-31 06:40 | NUR ---
Problems reprioritized. Patient report given, questions answered & plan of care reviewed with Chase MATA.
[2021-01-31] MEDS: ipratropium 0.5 MG/2.5ML nebule NEB SCH (07:34)
[2021-01-31] MEDS: lisinopril 2.5mg tablet PO SCH (07:51)
[2021-01-31] MEDS: carvedilol 6.25mg tablet PO SCH (07:51)
[2021-01-31] MEDS: isosorbide mononitrate 30mg tab.SR.24H PO SCH (07:52)
[2021-01-31] MEDS: docusate sod 100mg capsule PO SCH (07:52)
[2021-01-31] MEDS: spironolactone 25 MG tablet PO SCH (07:52)
[2021-01-31] MEDS: thiamine 100mg tablet PO SCH (07:52)
[2021-01-31] MEDS: folic acid 1mg tablet PO SCH (07:52)
[2021-01-31] MEDS: levoTHYROXINE 88mcg tablet PO SCH (07:52)
[2021-01-31] MEDS: ESCITALOPRAM OXALATE 5 MG TABLET PO SCH (07:53)
[2021-01-31] MEDS: K and/or MAG REPLACEMENT MC SCH (07:53)
[2021-01-31] MEDS: pantoprazole 40mg Tablet.DR PO SCH (07:53)
[2021-01-31] MEDS: mineral oil/petrolatum, white cream 113gm jar TP SCH (07:53)
[2021-01-31] MEDS: digoxin 250mcg (0.25mg) tablet PO SCH (07:53)
[2021-01-31] MEDS ORDERED: SPIR25TA PO (10:48)
[2021-01-31] MEDS ORDERED: WARF4TAB69 PO (10:52)
[2021-01-31 11:00] VITALS: BP 128/77
--- NOTE | 2021-01-31 12:16 | NUR ---
Paged Dr. Garvey regarding PTT PAGER ID: [phone] MESSAGE: [phone] Jamil Figueroa. Critical lab DVT/PTT 120. Heparin held per protocol. LATIA Islas
--- NOTE | 2021-01-31 14:30 | NUR ---
Patient ready for discharge per doctors orders. Medications and discharge instruction instructions discussed. PIV discontinued cannula intact. Telemetry discontinued. Wheeled to lobby via nursing staff. Went home with brother in private vehicle.
[2021-01-31] MEDS ORDERED: warfarin 10mg tablet PO ONE (21:00)
== END 2021-01-31 14:30 | disposition home or self-care (01) | DRG 194 ==
LOC: ER 13:07 → ED HOLD 16:11 → PCU 3S 21:30
PROVIDERS: ADMIT Internal Medicine; ATTEND Internal Medicine
PROC: 5A09357 Assistance with Respiratory Ventilation, Less than 24 Consecutive Hours, Continuous Positive Airway Pressure (ICD-10-PCS; principal; 2021-01-27)
PROC: 5A09357 Assistance with Respiratory Ventilation, Less than 24 Consecutive Hours, Continuous Positive Airway Pressure (ICD-10-PCS; 2021-01-28)
DX: I11.0 Hypertensive heart disease with heart failure (principal); I27.20 Pulmonary hypertension, unspecified; I82.412 Acute embolism and thrombosis of left femoral vein; I48.4 Atypical atrial flutter; G62.9 Polyneuropathy, unspecified; I42.9 Cardiomyopathy, unspecified; I48.91 Unspecified atrial fibrillation; I50.43 Acute on chronic combined systolic (congestive) and diastolic (congestive) heart failure; E11.9 Type 2 diabetes mellitus without complications; I50.82 Biventricular heart failure; E03.9 Hypothyroidism, unspecified; J44.9 Chronic obstructive pulmonary disease, unspecified; Z79.01 Long term (current) use of anticoagulants; Z79.4 Long term (current) use of insulin; Z86.711 Personal history of pulmonary embolism; Z86.718 Personal history of other venous thrombosis and embolism
CPT/HCPCS: 36415; 80048; 80053; 80305; 81003; 82948; 83036; 83735; 83880; 84443; 84484; 85025; 85610; 85730; 87081; 93005; 93970; 94640; 94660; 94760; 96374; 96375; 96376; 99291; G0378; J1644; J1815; J2270